=== PATIENT | female | born 1985 | race Caucasian/White ===

== ENCOUNTER 2016-08-05 16:23 | Emergency (ER) | payer OTHER ==
[~2016-08-05] VITALS: Ht 167.6 cm; Wt 125.0 kg
[~2016-08-05 16:23] MED LIST: ACYC800T PO; BIRTH CONTROL PILLS PO; CLON1 PO; LEXA20TA PO
[2016-08-05 16:25] VITALS: BP 131/91; PULSE 111; RESP 16; TEMP 98.1; O2SAT 99
[2016-08-05 17:25] LABS: BACTERIA, URINE MANY /hpf; BLOOD, URINE TRACE (NEG); COMMENT (UR) CULTURE INDICATED; CULTURE IF INDICATED CULTURE INDICATED; GLUCOSE,URINE NEG (NEG); KETONE, URINE NEG (NEG); MUCUS URINE FEW /lpf (OCC); SQUAMOUS EPITHELIAL CELL URINE 2 /hpf (0-5); URINE COLOR YELLOW (YELLW/STRAW)
[2016-08-05 17:26] LABS: NITRITE,URINE POS (NEG)
[2016-08-05] MEDS ORDERED: oxyCODONE/ACETAMINOPHEN 5 MG/325 MG TAB PO ONE (21:30)
[2016-08-05 22:05] VITALS: BP 130/84; PULSE 93; RESP 18; O2SAT 100
[2016-08-05 22:33] LABS: AUTOMATED NEUTROPHIL # 11.6 TH/MM3 (1.8-7.7); BASOPHIL # 0.1 TH/MM3 (0-0.2); BASOPHIL % 0.6 % (0.0-2.0); EOSINOPHIL # 0.3 TH/MM3 (0-0.4); EOSINOPHIL % 1.8 % (0.0-4.0); HEMATOCRIT 41.1 % (35.0-46.0); LYMPH % 24.8 % (9.0-44.0); LYMPHOCYTE # 4.1 TH/MM3 (1.0-4.8); MEAN CELL VOLUME 87.2 FL (80.0-100.0); MEAN CORPUSCULAR HEMOGLOBIN 29.6 PG (27.0-34.0); MONO % 3.3 % (0.0-8.0); NEUT % 69.5 % (16.0-70.0); PLATELET COUNT 353 TH/MM3 (150-450); RED BLOOD COUNT 4.71 MIL/MM3 (4.00-5.30); RED CELL DISTRIBUTION WIDTH 13.7 % (11.6-17.2); WHITE BLOOD COUNT 16.6 TH/MM3 (4.0-11.0)
[2016-08-05] MEDS ORDERED: MORPHINE SULFATE 8 MG/ML INJ IM ONE (23:00)
[2016-08-05 23:03] LABS: HEMO FLAGS AUTO DIFF; PLATELET ESTIMATE SMEAR NORMAL (NORMAL); PLATELET MORPHOLOGY NORMAL (NORMAL); SCAN/DIFF AUTO DIFF CONFIRMED
[2016-08-05] MEDS ORDERED: metroNIDAZOLE 500 MG TAB PO ONE (23:15)
[2016-08-05] MEDS ORDERED: ONDANSETRON ODT 4 MG TAB PO ONE (23:15)
[2016-08-05] MEDS ORDERED: cefTRIAXone 250 MG VIAL IM ONE (23:37)
--- NOTE | 2016-08-06 00:11 | PD ---
HPI Chief Complaint: Abdominal Pain Time Seen by Provider: 21:11 Travel History International Travel<30 days: No Contact w/Intl Traveler<30days: No Traveled to known affect area: No History of Present Illness HPI Patient is a 31-year-old female presents emergency Department with suprapubic pain. Patient states she has a history of PID and that her and her boyfriend her "swingers" and that she does not use protection. Patient states she does have an IUD in place. Denies any history of fever nausea vomiting or diarrhea. Patient thinks that she has a STD again. There is a history of vaginal discharge. States her symptoms began going on for several days and gradually worsening. Moderate in severity. PFSH Past Medical History Autoimmune Disease: No Anxiety: Yes Depression: Yes Cancer: Yes (cervical cancer - removed) Cardiovascular Problems: No Chemotherapy: No Cerebrovascular Accident: No Diabetes: No Diminished Hearing: No Endocrine: No Gastrointestinal Disorders: Yes (nausea all the time) Genitourinary: No Headaches: Yes Immune Disorder: No Implanted Vascular Access Dvce: No Musculoskeletal: Yes (back pain) Neurologic: Yes Psychiatric: Yes (Bipolar, ptsd, multiple personalties) Reproductive: No Respiratory: No Immunizations Current: Yes Migraines: Yes Radiation Therapy: No Seizures: Yes Thyroid Disease: No ?: Not : 0 Para: 0 Miscarriage: 0 : 0 Past Surgical History Abdominal Surgery: Yes (gallbladder removed, tonsels and adenoids removed) Cardiac Surgery: No Cholecystectomy: Yes Ear Surgery: No Endocrine Surgery: No Eye Surgery: Yes (left eye surgeries X3 (lazy eye)) Genitourinary Surgery: No Gynecologic Surgery: Yes (Cervical bx X's 2, leep) Neurologic Surgery: No Oral Surgery: No Thoracic Surgery: No Other Surgery: Yes (cervical leep) Social History Alcohol Use: Yes (RARELY) Tobacco Use: No Substance Use: No Allergies-Medications (Allergen,Severity, Reaction): Coded Allergies: Reglan (Verified Allergy, Severe, shakes, 08/05/16) Toradol (Verified Allergy, Severe, cannot urinate, 08/05/16) Tramadol (Verified Allergy, Severe, cannot urinate, 08/05/16) Zofran (Verified Allergy, Severe, shakes, 08/05/16) Erythromycin (Verified Allergy, Intermediate, fever, 08/05/16) *MDRO Multi-Drug Resistant Organism (Verified Adverse Reaction, Unknown, ) MRSA PCR screen positive - 09/23/2015 Reported Meds & Prescriptions Reported Meds & Active Scripts Active Keflex (Cephalexin) 500 Mg Cap 500 Mg PO Q6H 5 Days Flagyl (Metronidazole) 500 Mg Tab 500 Mg PO BID 7 Days Reported Acyclovir 800 Mg Tab 800 Mg PO DAILY Lexapro (Escitalopram Oxalate) 20 Mg Tab 20 Mg PO DAILY Klonopin (Clonazepam) 1 Mg Tab 1 Mg PO TID Review of Systems Except as stated in HPI: all other systems reviewed are Neg Physical Exam Narrative GENERAL: Well-developed well-nourished in no apparent distress SKIN: Warm and dry. HEAD: Atraumatic. Normocephalic. EYES: Pupils equal and round. No scleral icterus. No injection or drainage. ENT: No nasal bleeding or discharge. Mucous membranes pink and moist. NECK: Trachea midline. No JVD. CARDIOVASCULAR: Regular rate and rhythm. No murmur appreciated. RESPIRATORY: No accessory muscle use. Clear to auscultation. Breath sounds equal bilaterally. GASTROINTESTINAL: Abdomen soft, mental tenderness of the suprapubic region, nondistended. Hepatic and splenic margins not palpable. No CVA tenderness bilaterally GENITOURINARY: No joint discharge consistent with BV, no CMT, minimal bilateral adnexal tenderness. MUSCULOSKELETAL: No obvious deformities. No clubbing. No cyanosis. No edema. NEUROLOGICAL: Awake and alert. No obvious cranial nerve deficits. Motor grossly within normal limits. Normal speech. PSYCHIATRIC: Appropriate mood and affect; insight and judgment normal. Data Data Last Documented VS Vital Signs Date Time Temp Pulse Resp B/P Pulse Ox O2 Delivery O2 Flow Rate FiO2 08/06/16 02:08 75 18 130/78 98 Room Air 08/05/16 16:25 98.1 Orders Complete Blood Count With Diff (08/05/16 16:31) Urinalysis - C+S If Indicated (08/05/16 16:31) Urine Culture (08/05/16 16:46) Wet Prep Profile (08/05/16 21:17) Gc And Chlamydia Pcr (08/05/16 21:17) Oxycodone-Acetamin 5-325 Mg (Percocet (08/05/16 21:30) Us Pelvis Comp W Transvaginal (08/05/16 ) Morphine Inj (Morphine Inj) (08/05/16 23:00) Ceftriaxone Inj (Rocephin Inj) (08/06/16 09:00) Metronidazole (Flagyl) (08/05/16 23:15) Ondansetron Odt (Zofran Odt) (08/05/16 23:15) Ceftriaxone Inj (Rocephin Inj) (08/05/16 23:37) Promethazine (Phenergan) (08/06/16 01:45) Labs Laboratory Tests Test 08/05/16 08/05/16 08/05/16 16:46 21:45 22:58 Urine Color YELLOW Urine Turbidity HAZY Urine pH 6.0 Urine Specific [place] 1.022 Urine Protein NEG mg/dL Urine Glucose (UA) NEG mg/dL Urine Ketones NEG mg/dL Urine Occult Blood TRACE Urine Nitrite POS Urine Bilirubin NEG Urine Urobilinogen LESS THAN 2.0 MG/DL Urine Leukocyte Esterase SMALL Urine RBC 2 /hpf Urine WBC 12 /hpf Urine WBC Clumps OCC Urine Squamous Epithelial 2 /hpf Cells Urine Bacteria MANY /hpf Urine Mucus FEW /lpf Microscopic Urinalysis Comment CULTURE INDICATED White Blood Count 16.6 TH/MM3 Red Blood Count 4.71 MIL/MM3 Hemoglobin 14.0 GM/DL Hematocrit 41.1 % Mean Corpuscular Volume 87.2 FL Mean Corpuscular Hemoglobin 29.6 PG Mean Corpuscular Hemoglobin 34.0 % Concent Red Cell Distribution Width 13.7 % Platelet Count 353 TH/MM3 Mean Platelet Volume 9.9 FL Neutrophils (%) (Auto) 69.5 % Lymphocytes (%) (Auto) 24.8 % Monocytes (%) (Auto) 3.3 % Eosinophils (%) (Auto) 1.8 % Basophils (%) (Auto) 0.6 % Neutrophils # (Auto) 11.6 TH/MM3 Lymphocytes # (Auto) 4.1 TH/MM3 Monocytes # (Auto) 0.6 TH/MM3 Eosinophils # (Auto) 0.3 TH/MM3 Basophils # (Auto) 0.1 TH/MM3 CBC Comment AUTO DIFF Differential Comment AUTO DIFF CONFIRMED Platelet Estimate NORMAL Platelet Morphology Comment NORMAL Clue Cells (Wet Prep) NONE SEEN Vaginal Trichomonas (Wet Prep) NONE SEEN Vaginal Yeast (Wet Prep) NONE SEEN Chlamydia trachomatis DNA NOT DETECTED (PCR) Neisseria gonorrhoeae DNA NOT DETECTED (PCR) [facility] Medical Decision Making Medical Screen Exam Complete: Yes Emergency Medical Condition: Yes Differential Diagnosis , UTI, TOA, PID, ovarian torsion. Narrative Course Patient roomed in the emergency department, appears well taxing on her phone when not being interviewed by nursing or myself. Complains of significant pain and multiple doses of pain medicine given in the emergency department. Abdomen is benign, labs ordered as part of protocol workup hemolyzed. I don't think that they're necessary at this time. While awaiting ultrasound results for GC CT was run and is negative. She was given Rocephin in the emergency department. No indication for further STD treatment. She does have symptoms consistent with BV and does have a UA. Ultrasound of the ovaries and adnexa is negative for acute abnormality of the ovaries and adnexa. Her test negative. She is stable for discharge at this time recommend follow-up with her primary care physician or return to ED criteria as discussed. Discussed barrier contraception. Diagnosis Primary Impression: Urinary tract infection Qualified Code: N30.00 - Acute cystitis without hematuria Additional Impression: Bacterial vaginosis Med/Other Pt SpecificInfo: Prescription(s) given Scripts Cephalexin (Keflex)500 Mg [id number] Mg PO Q6H 5 Days Ref 0 Prov:Gabriel Craft MD 08/06/16 Metronidazole (Flagyl)500 Mg [id number] Mg PO BID 7 Days Ref 0 Prov:Gabriel Craft MD 08/06/16 Disposition: 01 DISCHARGE HOME Condition: Stable Gabriel Craft MD Aug 06, 2016 00:11
[2016-08-06 01:31] LABS: CHLAMYDIA PCR NOT DETECTED (NOT DETECT); NEISSERIA PCR NOT DETECTED (NOT DETECT)
[2016-08-06] MEDS ORDERED: PROMETHAZINE HCL 25 MG TAB PO ONE (01:45)
--- NOTE | 2016-08-06 01:59 | RADRPT ---
EXAM DATE/TIME: 08/06/2016 00:01 [facility] COMPARISON: No previous studies available for comparison. INDICATIONS : Left pelvic pain. MEDICAL HISTORY : Left pelvic pain. SURGICAL HISTORY : None. ENCOUNTER: Initial ACUITY: 1 day PAIN SCORE: 8/10 LOCATION: Bilateral pelvis MEASUREMENTS: UTERUS: 8.3 x 4.1 x 3.8 cm ENDOMETRIAL STRIPE: 11 mm RIGHT OVARY: 2.5 x 3.1 x 1.5 cm LEFT OVARY: 6.0 x 4.7 x 4.2 cm FINDINGS: UTERUS: The myometrium has homogeneous echotexture without mass. Small amount of fluid in the lower uterine segment. Intrauterine device noted. RIGHT OVARY: Ovary contains no mass or significant cystic lesion. LEFT OVARY: Simple cyst measures 5.0 x 4.3 x 3.5 cm. Color-flow present. MISCELLANEOUS: No free fluid. CONCLUSION: 1. Simple left ovarian cyst measuring 5.0 cm. 2. Small amount of fluid in the lower uterine segment. 3. Intrauterine device. Raj Yang MD on August 06, 2016 at 1:55 Board Certified Radiologist. This report was verified electronically.
[2016-08-06] MEDS ORDERED: METR-1 PO (02:01)
[2016-08-06] MEDS ORDERED: CEPH-460 PO (02:01)
[2016-08-06 02:08] VITALS: BP 130/78; PULSE 75; RESP 18; O2SAT 98
[2016-08-06] MEDS ORDERED: cefTRIAXone 250 MG VIAL IM SCH (09:00)
== END 2016-08-06 02:44 | disposition home or self-care (01) ==
LOC: NEPC 16:23
DX: N39.0 Urinary tract infection, site not specified (principal); N76.0 Acute vaginitis; B96.1 Klebsiella pneumoniae [K. pneumoniae] as the cause of diseases classified elsewhere
CPT/HCPCS: 76830; 76856; 81001; 85025; 87077; 87086; 87186; 87210; 87491; 87591; 96372; 99284; J0696; J2270; Q0169; 80048; 83690

== ENCOUNTER 2016-08-26 16:33 | Emergency (ER) | payer OTHER ==
[~2016-08-26] VITALS: Ht 172.7 cm; Wt 100.0 kg
[~2016-08-26 16:33] MED LIST changes: -BIRTH CONTROL PILLS PO; +CEPH-460 PO; +METR-1 PO
[2016-08-26 16:45] VITALS: BP 133/82; PULSE 87; RESP 20; TEMP 97.9; O2SAT 94
[2016-08-26] MEDS ORDERED: SODIUM CHLOR 0.9% 1000 ML INJ 1,000 ML IV ONE (16:49)
[2016-08-26] MEDS ORDERED: LAMO25 PO (16:52)
--- NOTE | 2016-08-26 16:53 | PD ---
HPI Chief Complaint: Seizure Time Seen by Provider: 16:53 Travel History International Travel<30 days: No Contact w/Intl Traveler<30days: No Traveled to known affect area: No History of Present Illness HPI 31-year-old female with a history of bipolar disorder, anxiety, depression, pseudoseizures presents to the emergency department for evaluation of seizures. Per EMS the patient reportedly had seizure activity [place] the [place] all [place] a book. States that she then had 2 other seizures while in their care. States that there was no postictal state, no tongue biting, no urinary or bowel incontinence. The patient states that she takes Lamictal for her seizure disorder. She states that her last seizure before today was about 2 weeks ago. She states that she is having nausea and vomiting and was seen at [facility] earlier today for vomiting and abdominal pain and had a CAT scan and lab work and was told that she had colitis and discharged with Phenergan for nausea. She denies any headache, lightheadedness, dizziness, numbness or tingling, weakness. She does not follow up with a neurologist. Denies alcohol or drug use. No other complaints. PFSH Past Medical History Autoimmune Disease: No Anxiety: Yes Depression: Yes Cancer: Yes (cervical cancer - removed) Cardiovascular Problems: No Chemotherapy: No Cerebrovascular Accident: No Diabetes: No Diminished Hearing: No Endocrine: No Gastrointestinal Disorders: Yes (nausea all the time) Genitourinary: No Headaches: Yes Immune Disorder: No Implanted Vascular Access Dvce: No Musculoskeletal: Yes (back pain) Neurologic: Yes Psychiatric: Yes (Bipolar, ptsd, multiple personalties) Reproductive: No Respiratory: No Immunizations Current: Yes Migraines: Yes Radiation Therapy: No Seizures: Yes Thyroid Disease: No ?: Not : 0 Para: 0 Miscarriage: 0 : 0 Past Surgical History Abdominal Surgery: Yes (gallbladder removed, tonsels and adenoids removed) Cardiac Surgery: No Cholecystectomy: Yes Ear Surgery: No Endocrine Surgery: No Eye Surgery: Yes (left eye surgeries X3 (lazy eye)) Genitourinary Surgery: No Gynecologic Surgery: Yes (Cervical bx X's 2, leep) Neurologic Surgery: No Oral Surgery: No Thoracic Surgery: No Other Surgery: Yes (cervical leep) Social History Alcohol Use: Yes (RARELY) Tobacco Use: No Substance Use: No Allergies-Medications (Allergen,Severity, Reaction): Coded Allergies: Reglan (Verified Allergy, Severe, shakes, 08/05/16) Toradol (Verified Allergy, Severe, cannot urinate, 08/05/16) Tramadol (Verified Allergy, Severe, cannot urinate, 08/05/16) Zofran (Verified Allergy, Severe, shakes, 08/05/16) Erythromycin (Verified Allergy, Intermediate, fever, 08/05/16) *MDRO Multi-Drug Resistant Organism (Verified Adverse Reaction, Unknown, ) MRSA PCR screen positive - 09/23/2015 Reported Meds & Prescriptions Reported Meds & Active Scripts Active Reported Lamictal (Lamotrigine) 25 Mg Tab Unknown Dose PO DAILY Lexapro (Escitalopram Oxalate) 20 Mg Tab 20 Mg PO DAILY Review of Systems Except as stated in HPI: all other systems reviewed are Neg Physical Exam Narrative GENERAL: Well-nourished and well-developed female patient in no acute distress who is nontoxic appearing. SKIN: Warm and dry. HEAD: Normocephalic and atraumatic. EYES: No injection, drainage, or hyphema noted. PERRLA. EOMI. ENT: No nasal drainage noted. Oropharynx is clear. NECK: Supple and the trachea is midline. CARDIOVASCULAR: Regular rate and rhythm. RESPIRATORY: Breath sounds are equal bilaterally with no accessory muscle use, wheezing, rhonchi, or crackles. GASTROINTESTINAL: Abdomen is soft, non-tender, and nondistended. MUSCULOSKELETAL: No obvious deformities, swelling, cyanosis, or ecchymosis is present throughout the upper and lower extremities. Patient has full range of motion without any signs of neurovascular compromise. NEUROLOGICAL: Awake, alert, and oriented. Normal speech and gait. Cranial nerves are grossly intact. Data Data Last Documented VS Vital Signs Date Time Temp Pulse Resp B/P Pulse Ox O2 Delivery O2 Flow Rate FiO2 08/26/16 16:45 97.9 87 20 133/82 94 Orders Complete Blood Count With Diff (08/26/16 16:49) Drug Screen, Random Urine (08/26/16 16:49) Iv Access Insert/Monitor (08/26/16 16:49) Comprehensive Metabolic Panel (08/26/16 16:49) Sodium Chlor 0.9% 1000 Ml Inj (Ns 1000 M (08/26/16 16:49) Urinalysis - C+S If Indicated (08/26/16 16:49) Lipase (08/26/16 16:49) Prochlorperazine Inj (Compazine Inj) (08/26/16 17:00) MDM Medical Decision Making Medical Screen Exam Complete: Yes Emergency Medical Condition: Yes Differential Diagnosis Pseudoseizure versus seizure disorder versus mood disorder versus malingering Narrative Course 31-year-old female is brought to the emergency department by EMS for evaluation of seizures. Patient is afebrile, vital signs are stable. The patient has a documented history of pseudoseizures at our hospital in the past. Today there was no postictal state, no tongue biting or incontinence. The patient is not on any seizure medications and not following up with a neurologist. Lab work has been ordered and is pending. Patient left AMA before lab work was complete. AMA: The risks of leaving against medical advice without further evaluation treatment were discussed with the patient. These risks include cardiac dysfunction, cardiac dysrhythmia, possible heart attack, possible stroke or . The patient indicated understanding of these risks and appeared to have the capacity to make this decision. Diagnosis Primary Impression: Left against medical advice Disposition: 07 AGAINST MEDICAL ADVICE [place] Aug 26, 2016 16:53
[2016-08-26] MEDS ORDERED: PROCHLORPERAZINE INJ 10 MG/2 ML VIAL IVS ONE (17:00)
[2016-08-26 17:34] LABS: AUTOMATED NEUTROPHIL # 7.8 TH/MM3 (1.8-7.7); BASOPHIL # 0.1 TH/MM3 (0-0.2); BASOPHIL % 0.5 % (0.0-2.0); EOSINOPHIL # 0.1 TH/MM3 (0-0.4); EOSINOPHIL % 0.5 % (0.0-4.0); HEMATOCRIT 37.1 % (35.0-46.0); HEMO FLAGS DIFF FINAL; LYMPH % 20.1 % (9.0-44.0); LYMPHOCYTE # 2.1 TH/MM3 (1.0-4.8); MEAN CELL VOLUME 88.4 FL (80.0-100.0); MEAN CORPUSCULAR HGB CONC 33.9 % (32.0-36.0); MONO % 4.3 % (0.0-8.0); NEUT % 74.6 % (16.0-70.0); PLATELET COUNT 323 TH/MM3 (150-450); RED BLOOD COUNT 4.19 MIL/MM3 (4.00-5.30); RED CELL DISTRIBUTION WIDTH 13.5 % (11.6-17.2); WHITE BLOOD COUNT 10.4 TH/MM3 (4.0-11.0)
== END 2016-08-26 17:43 | disposition left against medical advice (07) ==
LOC: NEPB 16:33
DX: F41.8 Other specified anxiety disorders (principal); R56.9 Unspecified convulsions
CPT/HCPCS: 85025; 96374; 99284; J0780; J7030; 80053; 83690

== ENCOUNTER 2016-09-23 17:36 | Emergency (ER) | payer OTHER ==
[~2016-09-23] VITALS: Ht 170.2 cm; Wt 125.0 kg
[~2016-09-23 17:36] MED LIST changes: -ACYC800T PO; -CEPH-460 PO; -CLON1 PO; +LAMO25 PO; -METR-1 PO
[2016-09-23 18:26] VITALS: BP 127/66; PULSE 95; RESP 18; TEMP 98.2; O2SAT 99
[2016-09-23 20:00] VITALS: BP 149/84; PULSE 80; RESP 18; O2SAT 98
[2016-09-23] MEDS ORDERED: SODIUM CHLOR 0.9% 1000 ML INJ 1,000 ML IV ONE (20:10)
--- NOTE | 2016-09-23 20:14 | PD ---
HPI Chief Complaint: Seizure Time Seen by Provider: 20:10 Travel History International Travel<30 days: No Contact w/Intl Traveler<30days: No Traveled to known affect area: No History of Present Illness HPI 31-year-old female presents to the emergency department by EMS transport from home. Patient was reportedly witnessed to have had a seizure. Seizure was estimated to be approximately 2-3 minutes. No injury was sustained reportedly. Patient denies any tongue trauma bladder or bowel incontinence. Patient does complain of headache however. Patient does have history of migraine headaches are typically managed with Imitrex Compazine and Benadryl when it is necessary to come to the emergency room for management of her headache. Patient states headache began yesterday as a typical migraine bifrontal and radiating to the left occiput region. Patient states she was able to take her seizure medication yesterday for her morning dose and her evening dose however this morning she was unsuccessful and tolerating her oral dose of anticonvulsant as 30 minutes after ingesting the medication she had vomiting. Patient is otherwise been compliant with her medications and not missed any dosages of her seizure medication. Patient states she is out of Imitrex. Patient rates her headache as 4-10 over 10 in intensity. Patient is unable to identify exacerbating or alleviating factors. Patient does have associated photophobia but denies any prodrome or upper or lower extremity numbness tingling or weakness or ataxia of gait. No hematemesis no coffee-ground emesis no melena or hematochezia. Patient also denies . Patient also denies any dysuria frequency urgency or hematuria. No recent febrile illness and no nuchal rigidity. PFSH Past Medical History Narrative Medical Seizure anxiety depression cervical cancer migraine headaches cervical LEEP procedure cholecystectomy alcohol use no tobacco use nursing notes reviewed Autoimmune Disease: No Anxiety: Yes Depression: Yes Cancer: Yes (cervical cancer - removed) Cardiovascular Problems: No Chemotherapy: No Cerebrovascular Accident: No Diabetes: No Diminished Hearing: No Endocrine: No Gastrointestinal Disorders: Yes (nausea all the time) Genitourinary: No Headaches: Yes Immune Disorder: No Implanted Vascular Access Dvce: No Musculoskeletal: Yes (back pain) Neurologic: Yes Psychiatric: Yes (Bipolar, ptsd, multiple personalties) Reproductive: No Respiratory: No Immunizations Current: Yes Migraines: Yes Radiation Therapy: No Seizures: Yes Thyroid Disease: No ?: Not LMP: IUD : 0 Para: 0 Miscarriage: 0 : 0 Past Surgical History Abdominal Surgery: Yes (gallbladder removed, tonsels and adenoids removed) Cardiac Surgery: No Cholecystectomy: Yes Ear Surgery: No Endocrine Surgery: No Eye Surgery: Yes (left eye surgeries X3 (lazy eye)) Genitourinary Surgery: No Gynecologic Surgery: Yes (Cervical bx X's 2, leep) Neurologic Surgery: No Oral Surgery: No Thoracic Surgery: No Other Surgery: Yes (cervical leep) Social History Alcohol Use: Yes (RARELY) Tobacco Use: No Substance Use: No Allergies-Medications (Allergen,Severity, Reaction): Coded Allergies: Reglan (Verified Allergy, Severe, shakes, 09/23/16) Toradol (Verified Allergy, Severe, cannot urinate, 09/23/16) Tramadol (Verified Allergy, Severe, cannot urinate, 09/23/16) Zofran (Verified Allergy, Severe, shakes, 09/23/16) Erythromycin (Verified Allergy, Intermediate, fever, 09/23/16) *MDRO Multi-Drug Resistant Organism (Verified Adverse Reaction, Unknown, ) MRSA PCR screen positive - 09/23/2015 Reported Meds & Prescriptions Reported Meds & Active Scripts Active Phenergan (Promethazine HCl) 25 Mg Tab 25 Mg PO Q6H PRN Reported Gabapentin 600 Mg Tab 600 Mg PO TID [place] (Hydrocodone-Acetaminophen) 10-325 Mg Tab 1 Tab PO Q6H PRN Zanaflex (Tizanidine HCl) 4 Mg Cap 4 Mg PO HS Ambien (Zolpidem Tartrate) 5 Mg Tab 5 Mg PO HS Latuda (Lurasidone) 20 Mg Tab 20 Mg PO HS Lamotrigine 100 Mg Tab 100 Mg PO BID Lexapro (Escitalopram Oxalate) 20 Mg Tab 20 Mg PO HS Review of Systems Except as stated in HPI: all other systems reviewed are Neg Physical Exam Narrative GENERAL: Well-developed well-nourished female in no acute distress no respiratory distress SKIN: Warm and dry. HEAD: Atraumatic. Normocephalic. EYES: Pupils equal and round. No scleral icterus. No injection or drainage. ENT: No nasal bleeding or discharge. Mucous membranes pink and moist. NECK: Trachea midline. No JVD. CARDIOVASCULAR: Regular rate and rhythm. RESPIRATORY: No accessory muscle use. Clear to auscultation. Breath sounds equal bilaterally. GASTROINTESTINAL: Abdomen soft, non-tender, nondistended. Hepatic and splenic margins not palpable. MUSCULOSKELETAL: Extremities without clubbing, cyanosis, or edema. No obvious deformities. NEUROLOGICAL: Awake and alert. No obvious cranial nerve deficits. Motor grossly within normal limits. Five out of 5 muscle strength in the arms and legs. Normal speech. PSYCHIATRIC: Appropriate mood and affect; insight and judgment normal. Data Data Last Documented VS Vital Signs Date Time Temp Pulse Resp B/P Pulse Ox O2 Delivery O2 Flow Rate FiO2 09/24/16 01:29 82 18 125/78 98 Room Air 09/23/16 18:26 98.2 Orders Complete Blood Count With Diff (09/23/16 20:10) Drug Screen, Random Urine (09/23/16 20:10) Electrocardiogram (09/23/16 ) Ct Brain W/O Iv Contrast(Rout) (09/23/16 ) Blood Glucose (09/23/16 20:10) Ecg Monitoring (09/23/16 20:10) Iv Access Insert/Monitor (09/23/16 20:10) Oximetry (09/23/16 20:10) Comprehensive Metabolic Panel (09/23/16 20:10) Sodium Chlor 0.9% 1000 Ml Inj (Ns 1000 M (09/23/16 20:10) Sodium Chloride 0.9% Flush (Ns Flush) (09/23/16 20:15) Ua Includes Microscopic (09/23/16 20:10) Prochlorperazine Inj (Compazine Inj) (09/23/16 20:15) Diphenhydramine Inj (Benadryl Inj) (09/23/16 20:15) Diphenhydramine Inj (Benadryl Inj) (09/24/16 00:45) Lamotrigine (Lamictal) (09/24/16 00:45) Labs Laboratory Tests Test 09/23/16 09/23/16 09/23/16 22:00 22:30 23:36 Urine Color YELLOW Urine Turbidity HAZY Urine pH 6.5 Urine Specific [place] 1.033 Urine Protein 30 mg/dL Urine Glucose (UA) NEG mg/dL Urine Ketones NEG mg/dL Urine Occult Blood TRACE Urine Nitrite NEG Urine Bilirubin NEG Urine Urobilinogen LESS THAN 2.0 MG/DL Urine Leukocyte Esterase NEG Urine RBC 3 /hpf Urine WBC 3 /hpf Urine Squamous Epithelial 16 /hpf Cells Urine Calcium Oxalate Crystals RARE /hpf Urine Bacteria OCC /hpf Urine Mucus MANY /lpf Microscopic Urinalysis Comment Urine Opiates Screen POS Urine Barbiturates Screen NEG Urine Amphetamines Screen NEG Urine Benzodiazepines Screen NEG Urine Cocaine Screen NEG Urine Cannabinoids Screen NEG White Blood Count 9.9 TH/MM3 Red Blood Count 4.42 MIL/MM3 Hemoglobin 13.3 GM/DL Hematocrit 38.9 % Mean Corpuscular Volume 87.9 FL Mean Corpuscular Hemoglobin 30.2 PG Mean Corpuscular Hemoglobin 34.3 % Concent Red Cell Distribution Width 13.6 % Platelet Count 321 TH/MM3 Mean Platelet Volume 9.7 FL Neutrophils (%) (Auto) 64.1 % Lymphocytes (%) (Auto) 29.3 % Monocytes (%) (Auto) 4.9 % Eosinophils (%) (Auto) 1.2 % Basophils (%) (Auto) 0.5 % Neutrophils # (Auto) 6.3 TH/MM3 Lymphocytes # (Auto) 2.9 TH/MM3 Monocytes # (Auto) 0.5 TH/MM3 Eosinophils # (Auto) 0.1 TH/MM3 Basophils # (Auto) 0.1 TH/MM3 CBC Comment DIFF FINAL Differential Comment Sodium Level 141 MEQ/L Potassium Level 3.7 MEQ/L Chloride Level 109 MEQ/L Carbon Dioxide Level 24.6 MEQ/L Anion Gap 7 MEQ/L Blood Urea Nitrogen 14 MG/DL Creatinine 0.75 MG/DL Estimat Glomerular Filtration 91 ML/MIN Rate Random Glucose 100 MG/DL Calcium Level 8.4 MG/DL Total Bilirubin 0.3 MG/DL Aspartate Amino Transf 12 U/L (AST/SGOT) Alanine Aminotransferase 17 U/L (ALT/SGPT) Alkaline Phosphatase 83 U/L Total Protein 7.2 GM/DL Albumin 3.6 GM/DL MDM Medical Decision Making Medical Screen Exam Complete: Yes Emergency Medical Condition: Yes Medical Record Reviewed: Yes Interpretation(s) EKG: Normal sinus rhythm heart rate [address] elevation or injury pattern change or ectopy noted Last Impressions Head CT 09/23/16 0000 Signed Impressions: Service Date/Time: Friday, September 23, 2016 20:36 - CONCLUSION: No acute disease. No significant change has occurred. Macho Scott MD CBC & BMP Diagram 09/23/16 22:30 09/23/16 23:36 Vital Signs Date Time Temp Pulse Resp B/P Pulse Ox O2 Delivery O2 Flow Rate FiO2 09/23/16 22:52 17 98 Room Air 09/23/16 22:00 82 18 127/75 99 Room Air 09/23/16 20:00 80 18 149/84 98 Room Air 09/23/16 18:26 98.2 95 18 127/66 99 Differential Diagnosis Breakthrough seizure medication noncompliance recurrent migraine vascular headache ICH CVA Narrative Course Patient with resolution of migraine headache after administration of IV fluids Benadryl and Compazine; patient monitored in the emergency department without recurrent seizure which is felt to be related to subtherapeutic anti-epileptic medication due to vomiting associated with migraine patient given replacement anticonvulsant. Patient made stable in the emergency department stable for outpatient management. Patient administered replacement dose of anticonvulsant reports feels clinically improved; patient is aware of need for close follow-up with her primary care provider and her neurologists. Patient provided a prescription for medication for nausea vomiting. Diagnosis Primary Impression: Migraine headache Qualified Code: G43.009 - Migraine without aura and without status migrainosus , not intractable Additional Impression: Breakthrough seizure Referrals: Primary Care Physician call for appointment Patient Instructions: General Instructions Departure Forms: Tests/Procedures, Work Release Special Instructions: no work x 1 day Additional Instructions: Continue current medications as presently prescribed Take medication as prescribed as needed for nausea and/or vomiting Follow-up with your primary care provider return to the emergency department for any concerns or change in condition No work times one day and ongoing no driving or climbing ladders Follow-up with your primary care provider and neurologist Return to the emergency department for any concerns or change in condition Med/Other Pt SpecificInfo: Prescription(s) given Scripts Promethazine (Phenergan)25 Mg Tab25 Mg PO Q6H PRN (Nausea/Vomiting) #10 TAB Ref 0 Prov:Liudmila Miranda MD 09/24/16 Disposition: 01 DISCHARGE HOME Condition: Stable Liudmila Miranda MD Sep 23, 2016 20:14
[2016-09-23] MEDS ORDERED: SODIUM CHLORIDE 0.9% FLUSH 5 ML FLUSH IVF PRN (20:15)
[2016-09-23] MEDS ORDERED: diphenhydrAMINE HCL 50 MG/ML VIAL IV PUSH ONE (20:15)
[2016-09-23] MEDS ORDERED: PROCHLORPERAZINE INJ 10 MG/2 ML VIAL IVS ONE (20:15)
--- NOTE | 2016-09-23 20:58 | RADRPT ---
EXAM DATE/TIME: 09/23/2016 20:36 [facility] COMPARISON: CT BRAIN W/O CONTRAST, February 06, 2016, 4:25. INDICATIONS : Witness seizure today; cephalgia and nausea; history of cervical cancer. RADIATION DOSE: 36.70 CTDIvol (mGy) MEDICAL HISTORY : Seizures. Cervical cancer; Multpile personality syndrome. SURGICAL HISTORY : Cholecystectomy. ENCOUNTER: Initial ACUITY: 1 day PAIN SCALE: 6/10 LOCATION: cranial TECHNIQUE: Multiple contiguous axial images were obtained of the head. Using automated exposure control and adj ustment of the mA and/or kV according to patient size, radiation dose was kept as low as reasonably a chievable to obtain optimal diagnostic quality images. FINDINGS: CEREBRUM: The ventricles are normal for age. No evidence of midline shift, mass lesion, hemorrhage or acute in farction. No extra-axial fluid collections are seen. POSTERIOR FOSSA: The cerebellum and brainstem are intact. The 4th ventricle is midline. The cerebellopontine angle i s unremarkable. EXTRACRANIAL: The visualized portion of the orbits is intact. SKULL: The calvaria is intact. No evidence of skull fracture. CONCLUSION: No acute disease. No significant change has occurred. Macho Scott MD on September 23, 2016 at 20:56 Board Certified Radiologist. This report was verified electronically.
[2016-09-23] MEDS ORDERED: AMBI5TAB PO (21:17)
[2016-09-23] MEDS ORDERED: ZANA4CAP PO (21:17)
[2016-09-23] MEDS ORDERED: LAMO100T PO (21:17)
[2016-09-23] MEDS ORDERED: HYDR-3366 PO (21:17)
[2016-09-23] MEDS ORDERED: GABA600T PO (21:17)
[2016-09-23] MEDS ORDERED: LURA20TA PO (21:17)
[2016-09-23 22:00] VITALS: BP 127/75; PULSE 82; RESP 18; O2SAT 99
[2016-09-23 22:52] VITALS: RESP 17; O2SAT 98
[2016-09-23 22:53] LABS: AMPHETAMINE, URINE NEG (NEG); BARBITURATES, URINE NEG (NEG); COCAINE, URINE NEG (NEG)
[2016-09-23 22:59] LABS: AUTOMATED NEUTROPHIL # 6.3 TH/MM3 (1.8-7.7); BASOPHIL # 0.1 TH/MM3 (0-0.2); BASOPHIL % 0.5 % (0.0-2.0); EOSINOPHIL # 0.1 TH/MM3 (0-0.4); EOSINOPHIL % 1.2 % (0.0-4.0); HEMATOCRIT 38.9 % (35.0-46.0); HEMO FLAGS DIFF FINAL; LYMPH % 29.3 % (9.0-44.0); LYMPHOCYTE # 2.9 TH/MM3 (1.0-4.8); MEAN CELL VOLUME 87.9 FL (80.0-100.0); MEAN CORPUSCULAR HEMOGLOBIN 30.2 PG (27.0-34.0); MEAN CORPUSCULAR HGB CONC 34.3 % (32.0-36.0); MONO % 4.9 % (0.0-8.0); NEUT % 64.1 % (16.0-70.0); PLATELET COUNT 321 TH/MM3 (150-450); RED BLOOD COUNT 4.42 MIL/MM3 (4.00-5.30); RED CELL DISTRIBUTION WIDTH 13.6 % (11.6-17.2); WHITE BLOOD COUNT 9.9 TH/MM3 (4.0-11.0)
[2016-09-23 23:21] LABS: BACTERIA, URINE OCC /hpf; BLOOD, URINE TRACE (NEG); CALCIUM OXALATE CRYSTALS,URINE RARE /hpf; GLUCOSE,URINE NEG (NEG); KETONE, URINE NEG (NEG); MUCUS URINE MANY /lpf (OCC); NITRITE,URINE NEG (NEG); PH, URINE 6.5 (5.0-8.5); SQUAMOUS EPITHELIAL CELL URINE 16 /hpf (0-5); URINE COLOR YELLOW (YELLW/STRAW)
[2016-09-24 00:04] LABS: ALT (GPT) 17 U/L (10-53); ANION GAP 7 MEQ/L (5-15); AST (GOT) 12 U/L (15-37); BICARBONATE 24.6 MEQ/L (21.0-32.0); BLOOD UREA NITROGEN 14 MG/DL (7-18); CHLORIDE 109 MEQ/L (98-107); GLOMERULAR FILTRATION RATE 91 ML/MIN (>89); POTASSIUM 3.7 MEQ/L (3.5-5.1); SODIUM (NA) 141 MEQ/L (136-145)
[2016-09-24 00:06] LABS: ALKALINE PHOSPHATASE 83 U/L (45-117); TOTAL BILIRUBIN ADULT 0.3 MG/DL (0.2-1.0)
[2016-09-24] MEDS ORDERED: lamoTRIgine 100 MG TAB PO ONE (00:45)
[2016-09-24] MEDS ORDERED: diphenhydrAMINE HCL 50 MG/ML VIAL IV PUSH ONE (00:45)
[2016-09-24] MEDS ORDERED: PROM25TA5 PO (00:59)
[2016-09-24 01:29] VITALS: BP 125/78; PULSE 82; RESP 18; O2SAT 98
--- NOTE | 2016-09-24 23:52 | EKG ---
Date Performed: 09/23/2016 Time Performed: 20:11:52 PTAGE: 31 years EKG: Sinus rhythm NORMAL ECG PREVIOUS TRACING : 02/06/2016 02.19 Compared to prior tracing no significant change DOCTOR: Carlos Linares Interpretating Date/Time 09/24/2016 23:50:24
== END 2016-09-24 01:44 | disposition home or self-care (01) ==
LOC: NEPC 17:36
DX: G43.009 Migraine without aura, not intractable, without status migrainosus (principal)
CPT/HCPCS: 70450; 80053; 80307; 81001; 85025; 93005; 96374; 96375; 96376; 99284; J0780; J1200; J7030

== ENCOUNTER 2016-10-05 12:11 | Emergency (ER) | payer OTHER ==
[~2016-10-05] VITALS: Ht 170.2 cm; Wt 128.0 kg
[~2016-10-05 12:11] MED LIST changes: +AMBI5TAB PO; +GABA600T PO; +HYDR-3366 PO; +LAMO100T PO; -LAMO25 PO; +LURA20TA PO; +PROM25TA5 PO; +ZANA4CAP PO
[2016-10-05 12:18] VITALS: BP 168/98; PULSE 82; RESP 14; TEMP 97.9; O2SAT 98
[2016-10-05] MEDS ORDERED: ACETAMINOPHEN/HYDROcodone 325 MG/5 MG TAB PO ONE (12:45)
--- NOTE | 2016-10-05 13:14 | RADRPT ---
EXAM DATE/TIME: 10/05/2016 13:01 [facility] COMPARISON: No previous studies available for comparison. INDICATIONS : Patient states she fell yesterday, lateral side pain. MEDICAL HISTORY : None. SURGICAL HISTORY : None. ENCOUNTER: Initial ACUITY: 2 days PAIN SCORE: 5/10 LOCATION: Left Foot FINDINGS: Three view examination of the left foot demonstrates no soft tissue swelling, dislocation, or fractur e. The tarsal bones appear intact. The interphalangeal and metatarsophalangeal joints are intact. The calcaneus is intact. Bony mineralization is normal. CONCLUSION: Negative for fracture or dislocation. Follow up in 7-10 days is suggested if symptoms persist. Miki Webb MD FACR on October 05, 2016 at 13:09 Board Certified Radiologist. This report was verified electronically.
[2016-10-05] MEDS ORDERED: IBUP800T23 PO (13:36)
[2016-10-05] MEDS ORDERED: EXTR500C PO (13:36)
--- NOTE | 2016-10-05 13:36 | PD ---
HPI Chief Complaint: Injury Time Seen by Provider: 12:45 Travel History International Travel<30 days: No Contact w/Intl Traveler<30days: No Traveled to known affect area: No History of Present Illness HPI 31-year-old female presents the emergency department with pain in the left dorsal lateral foot secondary to tripping over a curb last night. Patient has pain 9/10. She is able to barely bear weight. She denies ankle pain. She denies any other injury. Patient has a history of MRSA. She is allergic to Compazine, erythromycin, Reglan, Toradol, tramadol, and Zofran. PFSH Past Medical History Autoimmune Disease: No Anxiety: Yes Depression: Yes Cancer: Yes (cervical cancer - removed) Cardiovascular Problems: No Chemotherapy: No Cerebrovascular Accident: No Diabetes: No Diminished Hearing: No Endocrine: No Gastrointestinal Disorders: Yes (nausea all the time) Genitourinary: No Headaches: Yes Immune Disorder: No Implanted Vascular Access Dvce: No Musculoskeletal: Yes (back pain) Neurologic: Yes Psychiatric: Yes (Bipolar, ptsd, multiple personalties) Reproductive: No Respiratory: No Immunizations Current: Yes Migraines: Yes Radiation Therapy: No Seizures: Yes Thyroid Disease: No ?: Not LMP: IUD : 0 Para: 0 Miscarriage: 0 : 0 Past Surgical History Abdominal Surgery: Yes (gallbladder removed, tonsels and adenoids removed) Cardiac Surgery: No Cholecystectomy: Yes Ear Surgery: No Endocrine Surgery: No Eye Surgery: Yes (left eye surgeries X3 (lazy eye)) Genitourinary Surgery: No Gynecologic Surgery: Yes (Cervical bx X's 2, leep) Neurologic Surgery: No Oral Surgery: No Thoracic Surgery: No Other Surgery: Yes (cervical leep) Social History Alcohol Use: Yes (RARELY) Tobacco Use: No Substance Use: No Allergies-Medications (Allergen,Severity, Reaction): Coded Allergies: Reglan (Verified Allergy, Severe, shakes, 10/05/16) Toradol (Verified Allergy, Severe, cannot urinate, 10/05/16) Tramadol (Verified Allergy, Severe, cannot urinate, 10/05/16) Zofran (Verified Allergy, Severe, shakes, 10/05/16) Erythromycin (Verified Allergy, Intermediate, fever, 10/05/16) *MDRO Multi-Drug Resistant Organism (Verified Adverse Reaction, Unknown, ) MRSA PCR screen positive - 09/23/2015 Compazine (Verified Adverse Reaction, Unknown, AGITATION, 10/05/16) Reported Meds & Prescriptions Reported Meds & Active Scripts Active Ibuprofen 800 Mg Tab 800 Mg PO Q8H PRN Acetaminophen Extra Strength (Acetaminophen) 500 Mg Cap 1,000 Mg PO Q6H PRN Phenergan (Promethazine HCl) 25 Mg Tab 25 Mg PO Q6H PRN Reported Gabapentin 600 Mg Tab 600 Mg PO TID [place] (Hydrocodone-Acetaminophen) 10-325 Mg Tab 1 Tab PO Q6H PRN Zanaflex (Tizanidine HCl) 4 Mg Cap 4 Mg PO HS Ambien (Zolpidem Tartrate) 5 Mg Tab 5 Mg PO HS Latuda (Lurasidone) 20 Mg Tab 20 Mg PO HS Lamotrigine 100 Mg Tab 100 Mg PO BID Lexapro (Escitalopram Oxalate) 20 Mg Tab 20 Mg PO HS Review of Systems Except as stated in HPI: all other systems reviewed are Neg General / Constitutional: No: Fever Eyes: No: Visual changes HENT: No: Headaches Cardiovascular: No: Chest Pain or Discomfort Respiratory: No: Shortness of Breath Gastrointestinal: No: Abdominal Pain Genitourinary: No: Dysuria Musculoskeletal: No: Pain Skin: No Rash Neurologic: No: Weakness Psychiatric: No: Depression Endocrine: No: Polydipsia Hematologic/Lymphatic: No: Easy Bruising Physical Exam Narrative GENERAL: Patient appears in mild distress. SKIN: Warm and dry. Normal color. Normal turgor. Mild bruising over the left proximal dorsal lateral foot. HEAD: Atraumatic. Normocephalic. EYES: Pupils equal and round. No scleral icterus. No injection or drainage. ENT: No nasal bleeding or discharge. Mucous membranes pink and moist. Pharynx is clear. NECK: Trachea midline. Neck is supple nontender. CARDIOVASCULAR: Regular rate and rhythm. RESPIRATORY: No accessory muscle use. Clear to auscultation. Breath sounds equal bilaterally. MUSCULOSKELETAL: Extremities without clubbing, cyanosis, or edema. No obvious deformities. Patient is tenderness along the dorsal lateral left foot. She has tenderness at the base of the fifth metatarsal. NEUROLOGICAL: Awake and alert. No obvious cranial nerve deficits. Motor grossly within normal limits. Five out of 5 muscle strength in the arms and legs. Normal speech. PSYCHIATRIC: Appropriate mood and affect; insight and judgment normal. Data Data Last Documented VS Vital Signs Date Time Temp Pulse Resp B/P Pulse Ox O2 Delivery O2 Flow Rate FiO2 10/05/16 12:18 97.9 82 14 168/98 98 Orders Foot, Complete ([id number]) (10/05/16 12:35) Ice/Cold Pack (10/05/16 12:35) Acetamin-Hydrocod 325-5 Mg ([place] 5-325 (10/05/16 12:45) MDM Medical Decision Making Medical Screen Exam Complete: Yes Emergency Medical Condition: Yes Differential Diagnosis Trip and fall. Left foot sprain. Possible fracture. Narrative Course Patient is medically stable at time of exam. Patient is given Lortab 5/325 by mouth 1. X-ray of the left foot is obtained. X-ray shows no acute fracture dislocation per radiologist. Follow-up was recommended in 7-10 days pain persists. Patient is given a postop shoe for ambulation. Patient is given a prescription for ibuprofen 800 mg 3 times daily with food # 30. Patient follow-up as needed. Diagnosis Primary Impression: Sprain of left foot Qualified Code: S93.602A - Sprain of left foot, initial encounter Referrals: Primary Care Physician Patient Instructions: Foot Sprain (ED), General Instructions Additional Instructions: X-ray shows no acute fracture dislocation per radiologist. Follow-up was recommended in 7-10 days pain persists. Patient is given a postop shoe for ambulation. Patient is given a prescription for ibuprofen 800 mg 3 times daily with food # 30. Patient follow-up as needed. Med/Other Pt SpecificInfo: Prescription(s) given Scripts Ibuprofen 800 Mg [id number] Mg PO Q8H PRN (Pain/Inflammation) #30 TAB Prov:Gabriel Craft MD 10/05/16 Acetaminophen (Acetaminophen Extra Strength)500 Mg Cap1,000 Mg PO Q6H PRN (PAIN SCALE 4 TO 10) #60 CAP Ref 1 Prov:Gabriel Craft MD 10/05/16 Disposition: 01 DISCHARGE HOME Condition: Stable Fermin Dubose Oct 05, 2016 13:35
== END 2016-10-05 14:52 | disposition home or self-care (01) ==
LOC: NEPB 12:11
DX: S93.602A Unspecified sprain of left foot, initial encounter (principal); W18.09XA Striking against other object with subsequent fall, initial encounter; Y92.488 Other paved roadways as the place of occurrence of the external cause
CPT/HCPCS: 73630; 99283; L3260

== ENCOUNTER 2016-10-11 | Emergency (ER) | payer OTHER ==
[~2016-10-11] MED LIST changes: +EXTR500C PO; +IBUP800T23 PO
--- NOTE | 2016-10-11 00:42 | PD ---
HPI Chief Complaint: seizure Time Seen by Provider: 00:40 Travel History International Travel<30 days: No Contact w/Intl Traveler<30days: No History of Present Illness HPI Patient is a 31-year-old female with history of seizure disorder who presents the emergency department with seizure. Patient takes Lamictal. States that she is been compliant with this. She typically has a seizure approximately once per month. Her last seizure was one month ago. This evening she was on the back of a motorcycle when he felt an aura as though she was about to get a seizure and then did. No trauma. Patient states she feels back to baseline, slightly nauseous and body aches which is typical for her after seizure. PFSH Past Medical History Autoimmune Disease: No Anxiety: Yes Depression: Yes Cancer: Yes (cervical cancer - removed) Cardiovascular Problems: No Chemotherapy: No Cerebrovascular Accident: No Diabetes: No Diminished Hearing: No Endocrine: No Gastrointestinal Disorders: Yes (nausea all the time) Genitourinary: No Headaches: Yes Immune Disorder: No Implanted Vascular Access Dvce: No Musculoskeletal: Yes (back pain) Neurologic: Yes Psychiatric: Yes (Bipolar, ptsd, multiple personalties) Reproductive: No Respiratory: No Immunizations Current: Yes Migraines: Yes Radiation Therapy: No Seizures: Yes Thyroid Disease: No : 0 Para: 0 Miscarriage: 0 : 0 Past Surgical History Abdominal Surgery: Yes (gallbladder removed, tonsels and adenoids removed) Cardiac Surgery: No Cholecystectomy: Yes Ear Surgery: No Endocrine Surgery: No Eye Surgery: Yes (left eye surgeries X3 (lazy eye)) Genitourinary Surgery: No Gynecologic Surgery: Yes (Cervical bx X's 2, leep) Neurologic Surgery: No Oral Surgery: No Thoracic Surgery: No Other Surgery: Yes (cervical leep) Social History Alcohol Use: Yes (RARELY) Tobacco Use: No Substance Use: No Allergies-Medications (Allergen,Severity, Reaction): Coded Allergies: Reglan (Verified Allergy, Severe, shakes, 10/05/16) Toradol (Verified Allergy, Severe, cannot urinate, 10/05/16) Tramadol (Verified Allergy, Severe, cannot urinate, 10/05/16) Zofran (Verified Allergy, Severe, shakes, 10/05/16) Erythromycin (Verified Allergy, Intermediate, fever, 10/05/16) *MDRO Multi-Drug Resistant Organism (Verified Adverse Reaction, Unknown, ) MRSA PCR screen positive - 09/23/2015 Compazine (Verified Adverse Reaction, Unknown, AGITATION, 10/05/16) Reported Meds & Prescriptions Reported Meds & Active Scripts Active Ibuprofen 800 Mg Tab 800 Mg PO Q8H PRN Acetaminophen Extra Strength (Acetaminophen) 500 Mg Cap 1,000 Mg PO Q6H PRN Phenergan (Promethazine HCl) 25 Mg Tab 25 Mg PO Q6H PRN Reported Gabapentin 600 Mg Tab 600 Mg PO TID [place] (Hydrocodone-Acetaminophen) 10-325 Mg Tab 1 Tab PO Q6H PRN Zanaflex (Tizanidine HCl) 4 Mg Cap 4 Mg PO HS Ambien (Zolpidem Tartrate) 5 Mg Tab 5 Mg PO HS Latuda (Lurasidone) 20 Mg Tab 20 Mg PO HS Lamotrigine 100 Mg Tab 100 Mg PO BID Lexapro (Escitalopram Oxalate) 20 Mg Tab 20 Mg PO HS Review of Systems Except as stated in HPI: all other systems reviewed are Neg Physical Exam Narrative GENERAL: Well-appearing female in no acute distress SKIN: Warm and dry. HEAD: Atraumatic. Normocephalic. EYES: Pupils equal and round. No scleral icterus. No injection or drainage. ENT: No nasal bleeding or discharge. Mucous membranes pink and moist. NECK: Supple CARDIOVASCULAR: Regular rate and rhythm. RESPIRATORY: No accessory muscle use. GASTROINTESTINAL: Obese MUSCULOSKELETAL: As all extremity's normally No obvious deformities. No clubbing. No cyanosis. No edema. NEUROLOGICAL: Awake and alert. No obvious cranial nerve deficits. Motor grossly within normal limits. Normal speech. PSYCHIATRIC: Appropriate mood and affect; insight and judgment normal. [facility] Medical Decision Making Medical Screen Exam Complete: Yes Emergency Medical Condition: Yes Medical Record Reviewed: Yes Differential Diagnosis 31-year-old female with history of seizure disorder here with complaint of seizure. Differential includes seizure, breakthrough seizure, medication nonadherence, electrolyte abnormality, subtherapeutic antiepileptic. Narrative Course Patient placed on monitor. She refuses laboratory workup stating that it is always normally, and she was "due" for his seizure anyway. She sees a neurologist in [place] and is willing to follow up with them for outpatient management of her epilepsy. Patient is alert and oriented, GCS 15. Will be discharged home. Diagnosis Primary Impression: Seizure Referrals: Neurologist call for appointment Additional Instructions: No driving for 6 months after seizure. Follow-up with neurologist for further management of epilepsy. Med/Other Pt SpecificInfo: No Change to Meds Condition: Stable Bertha Garcia MD Oct 11, 2016 00:42
[2016-10-11 00:46] VITALS: BP 138/83; PULSE 56; RESP 18; TEMP 98.2; O2SAT 98
== END 2016-10-11 00:58 | disposition home or self-care (01) ==
LOC: NEDAMB
DX: G40.909 Epilepsy, unspecified, not intractable, without status epilepticus (principal)
CPT/HCPCS: 99283

== ENCOUNTER 2016-11-24 18:37 | Emergency (ER) | payer OTHER ==
[~2016-11-24] VITALS: Ht 167.6 cm; Wt 129.0 kg
[2016-11-24 18:38] VITALS: BP 140/91; PULSE 109; RESP 18; TEMP 97.8; O2SAT 98
--- NOTE | 2016-11-24 18:44 | PD ---
Physical Exam Time Seen by Provider: 18:42 Narrative 31 y/o female here with h/a, nausea, dizziness since yesterday, symptoms are typical of her migraine history. Vital signs reviewed Seen at triage desk. awaiting bed placement. Data Data Last Documented VS Vital Signs Date Time Temp Pulse Resp B/P Pulse Ox O2 Delivery O2 Flow Rate FiO2 11/24/16 18:38 97.8 109 18 140/91 98 MDM Medical Record Reviewed: Yes Supervised Visit with ANABEL: Bandar Rodriguez November 24, 2016 18:44
--- NOTE | 2016-11-24 19:09 | PD ---
HPI Chief Complaint: Headache Time Seen by Provider: 19:05 Travel History International Travel<30 days: No Contact w/Intl Traveler<30days: No Traveled to known affect area: No History of Present Illness HPI Patient is a 31 year old female presenting to emergency department for evaluation of a migraine. Patient states her migraine started yesterday, is consistent with her typical migraines. Patient states the pain is behind both of her eyes, she reports the pain is a 7 out of 10. She reports photophobia and nausea but no vomiting. Last night patient took ibuprofen and tizanidine at 8:00 with no relief of her symptoms, this morning she woke up and took hydrocodone, tizanidine and Phenergan. She continued to have symptoms so she took Excedrin Migraine. When that did not work she came to the emergency department. Patient was asked what she normally would do to abort her migraines and she stated "come to the emergency department". She does report the Imitrex worked for her however she states is not covered by her insurance. PFSH Past Medical History Autoimmune Disease: No Anxiety: Yes Depression: Yes Cancer: Yes (cervical cancer - removed) Cardiovascular Problems: No Chemotherapy: No Cerebrovascular Accident: No Diabetes: No Diminished Hearing: No Endocrine: No Gastrointestinal Disorders: Yes (nausea all the time) Genitourinary: No Headaches: Yes Immune Disorder: No Implanted Vascular Access Dvce: No Musculoskeletal: Yes (back pain) Neurologic: Yes Psychiatric: Yes (Bipolar, ptsd, multiple personalties) Reproductive: No Respiratory: No Immunizations Current: Yes Migraines: Yes Radiation Therapy: No Seizures: Yes Thyroid Disease: No ?: Not : 0 Para: 0 Miscarriage: 0 : 0 Past Surgical History Abdominal Surgery: Yes (gallbladder removed, tonsils and adenoids removed) Cardiac Surgery: No Cholecystectomy: Yes Ear Surgery: No Endocrine Surgery: No Eye Surgery: Yes (left eye surgeries X3 (lazy eye)) Genitourinary Surgery: No Gynecologic Surgery: Yes (Cervical bx X's 2, leep) Neurologic Surgery: No Oral Surgery: No Thoracic Surgery: No Other Surgery: Yes (cervical leep) Social History Alcohol Use: Yes (RARELY) Tobacco Use: No Substance Use: No Allergies-Medications (Allergen,Severity, Reaction): Coded Allergies: Reglan (Verified Allergy, Severe, shakes, 11/24/16) Toradol (Verified Allergy, Severe, cannot urinate, 11/24/16) Tramadol (Verified Allergy, Severe, cannot urinate, 11/24/16) Zofran (Verified Allergy, Severe, shakes, 11/24/16) Erythromycin (Verified Allergy, Intermediate, fever, 11/24/16) *MDRO Multi-Drug Resistant Organism (Verified Adverse Reaction, Unknown, ) MRSA PCR screen positive - 09/23/2015 Compazine (Verified Adverse Reaction, Unknown, AGITATION, 11/24/16) Reported Meds & Prescriptions Reported Meds & Active Scripts Active Ibuprofen 800 Mg Tab 800 Mg PO Q8H PRN Acetaminophen Extra Strength (Acetaminophen) 500 Mg Cap 1,000 Mg PO Q6H PRN Phenergan (Promethazine HCl) 25 Mg Tab 25 Mg PO Q6H PRN Reported Gabapentin 600 Mg Tab 600 Mg PO TID [place] (Hydrocodone-Acetaminophen) 10-325 Mg Tab 1 Tab PO Q6H PRN Zanaflex (Tizanidine HCl) 4 Mg Cap 4 Mg PO HS Ambien (Zolpidem Tartrate) 5 Mg Tab 5 Mg PO HS Latuda (Lurasidone) 20 Mg Tab 20 Mg PO HS Lamotrigine 100 Mg Tab 100 Mg PO BID Lexapro (Escitalopram Oxalate) 20 Mg Tab 20 Mg PO HS Review of Systems Except as stated in HPI: all other systems reviewed are Neg HENT: Positive: Headaches Gastrointestinal: Positive: Nausea Physical Exam Narrative GENERAL: Obese, well-developed, alert female. Resting comfortably in no acute distress. SKIN: Focused skin assessment warm/dry. HEAD: Atraumatic. Normocephalic. EYES: Pupils equal and round. No scleral icterus. No injection or drainage. ENT: No nasal bleeding or discharge. Mucous membranes pink and moist. NECK: Trachea midline. No JVD. CARDIOVASCULAR: Regular rate and rhythm. No murmur appreciated. RESPIRATORY: No accessory muscle use. Clear to auscultation. Breath sounds equal bilaterally. GASTROINTESTINAL: Abdomen soft, non-tender, nondistended. Hepatic and splenic margins not palpable. MUSCULOSKELETAL: No obvious deformities. No clubbing. No cyanosis. No edema. NEUROLOGICAL: Awake and alert. No obvious cranial nerve deficits. Motor grossly within normal limits. Normal speech. PSYCHIATRIC: Appropriate mood and affect; insight and judgment normal. Data Data Last Documented VS Vital Signs Date Time Temp Pulse Resp B/P Pulse Ox O2 Delivery O2 Flow Rate FiO2 11/24/16 18:54 18 Room Air 11/24/16 18:38 97.8 109 140/91 98 Orders Ed Urine Pregnancytest Poc (11/24/16 18:46) Sumatriptan Succinate (Imitrex) (11/24/16 19:15) MDM Medical Decision Making Medical Screen Exam Complete: Yes Emergency Medical Condition: Yes Medical Record Reviewed: Yes Interpretation(s) Vital Signs Date Time Temp Pulse Resp B/P Pulse Ox O2 Delivery O2 Flow Rate FiO2 11/24/16 18:54 18 Room Air 11/24/16 18:38 97.8 109 18 140/91 98 Differential Diagnosis Migraine versus tension headache versus cluster headache versus other Narrative Course Patient is a 31-year-old female presenting to the emergency room for evaluation of a migraine headache. Headache is typical of her previous headaches, patient is neurologically intact. Imitrex has worked for her in the past. She is unable to afford it due to insurance issues. Patient be given dose of Imitrex in the emergency department. Will reassess. Patient reassessed approximately 30 minutes after administration of Imitrex. Patient reports that her headache is completely resolved. Denies any nausea currently. Patient will be provided with a prescription for generic Imitrex. She is encouraged to shop around to different pharmacies to get the best [facility]. She is encouraged to follow-up with her primary doctor to discuss abortive therapy. Patient was encouraged to return to emergency department for any new or worsening symptoms. Patient verbalized understanding of discharge instructions. Patient is stable for discharge. Diagnosis Primary Impression: Migraine headache Qualified Code: G43.909 - Migraine without status migrainosus, not intractable , unspecified migraine type Referrals: [facility] Phys[facility] Patient Instructions: General Instructions, Migraine Headache (ED) Additional Instructions: Follow-up with your primary doctor or at the [facility] Avoid migraine triggers Take medications as needed and as directed Return to emergency department for any new or worsening symptoms Med/Other Pt SpecificInfo: Prescription(s) given Scripts Sumatriptan 50 Mg Tab50 Mg PO ONCE PRN (MIGRAINE HEADACHE) #9 TAB Ref 0 If a satisfactory response has not been obtained at 2 hours, a second dose may be administered Prov:Jillian Jay 11/24/16 Disposition: 01 DISCHARGE HOME Condition: Stable Jillian Jay November 24, 2016 19:08
[2016-11-24] MEDS ORDERED: SUMAtriptan SUCCINATE 50 MG TAB PO ONE (19:15)
[2016-11-24] MEDS ORDERED: SUMA50TA2 PO (20:12)
== END 2016-11-24 20:30 | disposition home or self-care (01) ==
LOC: NEPD 18:37
DX: G43.909 Migraine, unspecified, not intractable, without status migrainosus (principal); Z85.41 Personal history of malignant neoplasm of cervix uteri
CPT/HCPCS: 84703; 99284

== ENCOUNTER 2016-12-10 14:05 | Inpatient (IN) | payer OTHER ==
[~2016-12-10] VITALS: Ht 167.6 cm; Wt 130.7 kg
[~2016-12-10 14:05] MED LIST changes: +SUMA50TA2 PO
[2016-12-10 14:07] VITALS: BP 141/97; PULSE 125; RESP 18; TEMP 98.6; O2SAT 99
--- NOTE | 2016-12-10 14:14 | PD ---
Physical Exam Time Seen by Provider: 14:11 Narrative 31yo F c/o suicidal thoughts and has plan to overdose on muscle relaxers prescribed to her, Xanaflex. Has attempted in past with OD on muscle relaxers. Denies HI, hallucinations. Rod ETOH, illicit drug use. Patient seen in triage. Awaiting bed placement. VS reviewed. Data Data Last Documented VS Vital Signs Date Time Temp Pulse Resp B/P Pulse Ox O2 Delivery O2 Flow Rate FiO2 12/10/16 14:07 98.6 125 18 141/97 99 MDM Supervised Visit with ANABEL: Lima Silva December 10, 2016 14:14
[2016-12-10 14:59] LABS: AUTOMATED NEUTROPHIL # 11.1 TH/MM3 (1.8-7.7); BASOPHIL # 0.1 TH/MM3 (0-0.2); BASOPHIL % 0.7 % (0.0-2.0); EOSINOPHIL # 0.1 TH/MM3 (0-0.4); EOSINOPHIL % 0.6 % (0.0-4.0); HEMATOCRIT 38.7 % (35.0-46.0); HEMO FLAGS DIFF FINAL; LYMPH % 15.4 % (9.0-44.0); LYMPHOCYTE # 2.2 TH/MM3 (1.0-4.8); MEAN CELL VOLUME 87.9 FL (80.0-100.0); MEAN CORPUSCULAR HEMOGLOBIN 29.6 PG (27.0-34.0); MEAN CORPUSCULAR HGB CONC 33.7 % (32.0-36.0); MONO % 4.4 % (0.0-8.0); NEUT % 78.9 % (16.0-70.0); PLATELET COUNT 352 TH/MM3 (150-450); RED CELL DISTRIBUTION WIDTH 13.6 % (11.6-17.2); WHITE BLOOD COUNT 14.1 TH/MM3 (4.0-11.0)
[2016-12-10 15:14] LABS: AMPHETAMINE, URINE NEG (NEG); BARBITURATES, URINE NEG (NEG); COCAINE, URINE NEG (NEG)
[2016-12-10 15:21] LABS: BICARBONATE 24.4 MEQ/L (21.0-32.0); POTASSIUM 3.3 MEQ/L (3.5-5.1)
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
[2016-12-10] MEDS ORDERED: POTASSIUM CHLORIDE 20 MEQ CONTROLLED RELEASE TAB PO ONE (18:00)
[2016-12-10 19:36] VITALS: RESP 16; TEMP 98.8
[2016-12-11 00:09] VITALS: PULSE 84; RESP 16; O2SAT 97
[2016-12-11 08:22] VITALS: BP 115/68; PULSE 70; RESP 14; TEMP 98.3; O2SAT 98
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
[2016-12-11] MEDS ORDERED: MAGNESIUM HYDROXIDE SUSP 30 ML CUP PO PRN (09:15)
[2016-12-11] MEDS ORDERED: ALUMINUM/MAGNESIUM/SIMETH 30 ML CUP PO PRN (09:15)
[2016-12-11] MEDS: lamoTRIgine 100 MG TAB PO SCH ×2 (10:51→21:32)
[2016-12-11 11:14] VITALS: BP 135/86; PULSE 77; TEMP 97.1
[2016-12-11] MEDS: ACETAMINOPHEN 325 MG TAB PO PRN (12:08)
[2016-12-11] MEDS: GABAPENTIN 300 MG CAP PO SCH ×2 (12:10→17:27)
[2016-12-11] MEDS ORDERED: ACETAMINOPHEN 500 MG CPLT PO PRN (16:00)
[2016-12-11] MEDS ORDERED: PROMETHAZINE HCL 25 MG TAB PO PRN (16:00)
[2016-12-11] MEDS ORDERED: SUMAtriptan SUCCINATE 50 MG TAB PO PRN (16:00)
[2016-12-11] MEDS ORDERED: IBUPROFEN 800 MG TAB PO PRN (16:00)
[2016-12-11] MEDS: ACETAMINOPHEN/HYDROcodone 325 MG/10 MG TAB PO PRN (17:27)
[2016-12-11 18:08] VITALS: BP 133/78; PULSE 120; RESP 18; TEMP 97.4; O2SAT 95
[2016-12-11] MEDS: ESCITALOPRAM OXALATE 20 MG TAB PO SCH (21:31)
[2016-12-11] MEDS: ZOLPIDEM TARTRATE 5 MG TAB PO SCH (21:31)
[2016-12-12 05:02] VITALS: BP 117/60; PULSE 68; RESP 18; TEMP 97.3; O2SAT 98
[2016-12-12 09:03] LABS: ANION GAP 8 MEQ/L (5-15); BICARBONATE 25.6 MEQ/L (21.0-32.0); BLOOD UREA NITROGEN 11 MG/DL (7-18); CHLORIDE 106 MEQ/L (98-107); GLOMERULAR FILTRATION RATE 89 ML/MIN (>89); HDL CHOLESTEROL 55.2 MG/DL (40.0-60.0); LDL CHOLESTEROL 40 MG/DL (0-99); POTASSIUM 3.9 MEQ/L (3.5-5.1); SODIUM (NA) 140 MEQ/L (136-145)
[2016-12-12] MEDS: GABAPENTIN 300 MG CAP PO SCH ×3 (09:23→17:48)
[2016-12-12] MEDS: lamoTRIgine 100 MG TAB PO SCH ×2 (09:23→20:22)
[2016-12-12 13:40] LABS: HEMOGLOBIN A1b 1.5 %; HEMOGLOBIN Ao 86.6 %; HEMOGLOBIN LA1C 1.9 %; HEMOGLOBIN P3 3.4 %
[2016-12-12] MEDS: ACETAMINOPHEN/HYDROcodone 325 MG/10 MG TAB PO PRN ×2 (13:50→20:23)
[2016-12-12] MEDS: clonazePAM 0.5 MG TAB PO SCH ×2 (13:54→20:22)
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
[2016-12-12 16:35] VITALS: BP 132/75; PULSE 77; RESP 18; TEMP 97.5; O2SAT 97
[2016-12-12] MEDS ORDERED: PILL SPLITTER OTHER PRN (18:00)
[2016-12-12] MEDS: LURASIDONE 40 MG TAB PO SCH (20:22)
[2016-12-12] MEDS: ESCITALOPRAM OXALATE 20 MG TAB PO SCH (20:22)
[2016-12-12] MEDS ORDERED: LURASIDONE 40 MG TAB PO SCH (21:00)
[2016-12-12] MEDS: ZOLPIDEM TARTRATE 5 MG TAB PO SCH (21:32)
[2016-12-13 05:58] VITALS: BP 128/67; PULSE 68; RESP 18; TEMP 97.8; O2SAT 97
[2016-12-13] MEDS: clonazePAM 0.5 MG TAB PO SCH ×2 (09:00→20:46)
[2016-12-13] MEDS: lamoTRIgine 100 MG TAB PO SCH ×2 (09:00→20:46)
[2016-12-13] MEDS: GABAPENTIN 300 MG CAP PO SCH ×3 (09:17→17:18)
[2016-12-13] MEDS: ACETAMINOPHEN/HYDROcodone 325 MG/10 MG TAB PO PRN ×2 (11:31→20:48)
--- NOTE | 2016-12-13 13:26 | HHI.PYPN ---
Subjective Remarks Patient was seen and case discussed with nursing. Before interview, patient was seen laughing smiling and playing basketball with others. During our interview patient says she continues to be depressed with suicidal ideation with no intent or plan. She describes various stressors such as a recent kidney diagnosis for her mother and unemployment. Compliant with her medications and tolerating them well Objective Alert: Yes [place]: Person (ox4), Place, Date Mood: Depressed Affect: Other (note congruent, happy) Memory Intact: Comment (no impairmetn) Hallucinations: Other (Negative) Delusions: No Delusion Type: Other (none elicited) Suicidal: Plan (no plan), Ideation (fleeting thoughts) Homicidal: Ideation (denies) Insight/Judgment Poor Vitals/IOs Vital Signs Date Time Temp Pulse Resp B/P Pulse Ox O2 Delivery O2 Flow Rate FiO2 12/13/16 05:58 97.8 68 18 128/67 97 12/11/16 08:22 Room Air Assessment & Plan Problem List: (1) Bipolar 1 disorder, depressed, moderate ICD Code: F31.32 Assessment & Plan Consider borderline as a diagnosis Justification for Cont. Inpt. Patient will decompensate in a less restrictive setting James Corrales DO December 13, 2016 13:26
[2016-12-13] MEDS ORDERED: LORazepam 2 MG/ML VIAL ONE (19:33)
[2016-12-13] MEDS ORDERED: LORazepam 2 MG/ML VIAL IM ONE (20:00)
[2016-12-13] MEDS: ZOLPIDEM TARTRATE 5 MG TAB PO SCH (20:46)
[2016-12-13] MEDS: LURASIDONE 40 MG TAB PO SCH (20:46)
[2016-12-13] MEDS: ESCITALOPRAM OXALATE 20 MG TAB PO SCH (20:46)
[2016-12-13] MEDS: ACETAMINOPHEN 325 MG TAB PO PRN (20:47)
[2016-12-13 21:22] VITALS: BP 112/73; PULSE 78; RESP 18; TEMP 88.7; O2SAT 18
[2016-12-14 03:27] VITALS: BP 145/86; PULSE 90; TEMP 96; O2SAT 99
[2016-12-14 06:00] VITALS: BP 118/66; PULSE 62; RESP 18; TEMP 99.1; O2SAT 97
[2016-12-14] MEDS: clonazePAM 0.5 MG TAB PO SCH (08:54)
[2016-12-14] MEDS: GABAPENTIN 300 MG CAP PO SCH ×2 (08:54→13:14)
[2016-12-14] MEDS: lamoTRIgine 100 MG TAB PO SCH (08:54)
[2016-12-14] MEDS: ACETAMINOPHEN/HYDROcodone 325 MG/10 MG TAB PO PRN (13:18)
--- NOTE | 2016-12-14 14:47 | HHI.PYPN ---
Subjective Remarks Patient continues to be anxious and depressed. She is requesting we stopped the Latuda. This physician suggested and prescribed Abilify 1 mg daily at bedtime instead. Review of Systems Except as stated in HPI: all other systems reviewed are Neg Objective Alert: Yes [place]: Person (ox4), Place, Date Mood: Depressed Affect: Other (note congruent, happy) Memory Intact: Comment (no impairmetn) Hallucinations: Other (Negative) Delusions: No Delusion Type: Other (none elicited) Suicidal: Plan (no plan), Ideation (fleeting thoughts) Homicidal: Ideation (denies) Insight/Judgment Impaired Vitals/IOs Vital Signs Date Time Temp Pulse Resp B/P Pulse Ox O2 Delivery O2 Flow Rate FiO2 12/14/16 06:00 99.1 62 18 118/66 97 12/11/16 08:22 Room Air Assessment & Plan Problem List: (1) Bipolar 1 disorder, depressed, moderate ICD Code: F31.32 Assessment & Plan Estimated LOS: 2 days change Latuda for Abilify. Justification for Cont. Inpt. Changing medications at this time and will evaluate for tolerability. Luis Felipe Clayton MD December 14, 2016 14:47
[2016-12-14] MEDS ORDERED: LORazepam 2 MG/ML VIAL ONE (15:29)
[2016-12-14] MEDS ORDERED: LORazepam 2 MG/ML VIAL IM ONE (15:45)
[2016-12-14 15:50] VITALS: O2SAT 99
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
[2016-12-14] MEDS ORDERED: ARIPiprazole 2 MG TAB PO SCH (21:00)
[2016-12-15] MEDS ORDERED: CLON.5 PO (14:55)
[2016-12-15] MEDS ORDERED: LEVE500 PO (14:55)
== END 2016-12-14 15:55 | disposition still patient (30) | DRG 885 ==
LOC: NEPD 14:05 → NEDA 12-11 09:10 → H260 12-11 10:20
PROVIDERS: ADMIT Psychiatry & Neurology Psychiatry; ATTEND Psychiatry & Neurology Psychiatry
DX: F31.32 Bipolar disorder, current episode depressed, moderate (principal); R45.851 Suicidal ideations; G43.909 Migraine, unspecified, not intractable, without status migrainosus; E87.6 Hypokalemia; M51.16 Intervertebral disc disorders with radiculopathy, lumbar region; F41.1 Generalized anxiety disorder; F43.10 Post-traumatic stress disorder, unspecified; F44.5 Conversion disorder with seizures or convulsions
CPT/HCPCS: 80048; 80061; 80307; 83036; 84703; 85025; 99285; J2060

== ENCOUNTER 2016-12-14 16:30 | Inpatient (IN) | payer OTHER ==
[~2016-12-14] VITALS: Ht 170.2 cm; Wt 135.0 kg
[2016-12-14 16:30] VITALS: PULSE 97
[2016-12-14] MEDS ORDERED: LORazepam 2 MG/ML VIAL ONE (16:41)
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
[2016-12-14 18:00] VITALS: PULSE 98
[2016-12-14] MEDS ORDERED: levETIRAcetam 1000 MG INJ 100 ML IV ONE (18:15)
[2016-12-14] MEDS ORDERED: levETIRAcetam 1000 MG INJ 100 ML IV SCH (18:15)
[2016-12-14] MEDS: SODIUM CHLOR 0.9% 1000 ML INJ 1,000 ML IV SCH (18:42)
[2016-12-14 18:43] VITALS: BP 171/96; PULSE 90; RESP 17; TEMP 98.6; O2SAT 95
[2016-12-14] MEDS ORDERED: SODIUM CHLORIDE 0.9% FLUSH 10 ML FLUSH IV FLUSH PRN (18:45)
[2016-12-14] MEDS ORDERED: IBUPROFEN 600 MG TAB PO PRN (18:45)
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
[2016-12-14 20:00] VITALS: BP 143/84; PULSE 114; RESP 24; TEMP 98.4; O2SAT 95
[2016-12-14] MEDS: SODIUM CHLORIDE 0.9% FLUSH 10 ML FLUSH IV FLUSH SCH (20:00)
[2016-12-14] MEDS: LORazepam 2 MG/ML VIAL IV PRN (20:00)
--- NOTE | 2016-12-14 21:52 | RADRPT ---
EXAM DATE/TIME: 12/14/2016 21:07 [facility] COMPARISON: No previous studies available for comparison. INDICATIONS : Seizures. RADIATION DOSE: 50.46 CTDIvol (mGy) MEDICAL HISTORY : Seizures. Cervical ca SURGICAL HISTORY : Cholecystectomy. ENCOUNTER: Initial ACUITY: 1 day PAIN SCALE: 0/10 LOCATION: cranial TECHNIQUE: Multiple contiguous axial images were obtained of the head. Using automated exposure control and adj ustment of the mA and/or kV according to patient size, radiation dose was kept as low as reasonably a chievable to obtain optimal diagnostic quality images. FINDINGS: CEREBRUM: The ventricles are normal for age. No evidence of midline shift, mass lesion, hemorrhage or acute in farction. No extra-axial fluid collections are seen. POSTERIOR FOSSA: The cerebellum and brainstem are intact. The 4th ventricle is midline. The cerebellopontine angle i s unremarkable. EXTRACRANIAL: The visualized portion of the orbits is intact. SKULL: The calvaria is intact. No evidence of skull fracture. CONCLUSION: Normal examination for a patient of this age. No significant change has occurred. Tito Vo MD on December 14, 2016 at 21:50 Board Certified Radiologist. This report was verified electronically.
[2016-12-14 22:00] VITALS: PULSE 89
[2016-12-15] VITALS (13 sets, daily range): BP systolic 109–146; BP diastolic 65–97; PULSE 66–96; RESP 12–29; TEMP 97.9–98.7; O2SAT 94–99
[2016-12-15] MEDS: ACETAMINOPHEN 325 MG TAB PO PRN ×2 (02:21→10:29)
[2016-12-15] MEDS: SODIUM CHLOR 0.9% 1000 ML INJ 1,000 ML IV SCH ×2 (07:09→21:14)
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
[2016-12-15] MEDS ORDERED: SUMAtriptan SUCCINATE 50 MG TAB PO PRN (10:15)
[2016-12-15] MEDS: clonazePAM 0.5 MG TAB PO SCH ×2 (10:29→20:59)
[2016-12-15] MEDS: levETIRAcetam 500 MG TAB PO SCH ×2 (10:30→20:59)
[2016-12-15] MEDS: SODIUM CHLORIDE 0.9% FLUSH 10 ML FLUSH IV FLUSH SCH ×2 (10:30→20:59)
[2016-12-15] MEDS ORDERED: ACETAMINOPHEN/HYDROcodone 325 MG/10 MG TAB PO PRN (12:00)
--- NOTE | 2016-12-15 14:48 | MG ---
cc: LEONIDES FLOYD Lab No: [id number] Date: 12/15/2016 Age: 31 Sex: F A 31-year-old psych patient, seizure with gaze to the left, body shaking, possible pseudoseizures. Ativan, Keppra. DESCRIPTION Diffuse beta rhythms are seen consistent with benzodiazepine use. Photic stimulation is performed without significant posterior driving. No focal abnormalities are noted. No seizure activity is seen. Hyperventilation is performed with fair effort without change in the background. IMPRESSION A normal EEG. There is some medication effect with the benzodiazepines, otherwise no focal or diffuse abnormality, no seizure activity. MD ARTIE Barnett/GOLD /2:22 PM /2:42 PM
[2016-12-15] MEDS ORDERED: CLON.5 PO (14:55)
[2016-12-15] MEDS ORDERED: LEVE500 PO (14:55)
--- NOTE | 2016-12-15 14:56 | HHI.DCPOC ---
Discharge Care Plan Diagnosis: (1) Depression (2) Pseudoseizure (3) Migraine headache (4) Bipolar 1 disorder, depressed, moderate Goals to Promote Your Health * To prevent worsening of your condition and complications * To maintain your health at the optimal level Directions to Meet Your Goals Take your medications as prescribed Follow your dietary instruction Follow activity as directed Keep your appointments as scheduled Take your immunizations and boosters as scheduled If your symptoms worsen call your PCP, if no PCP go to Urgent Care Center or Emergency Room Smoking is Dangerous to Your Health. Avoid second hand smoke Call the 24-hour hour crisis hotline for domestic abuse at Mike Mcmanus MD December 15, 2016 14:56
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
[2016-12-15] MEDS: LORazepam 2 MG/ML VIAL IV PRN ×2 (15:16→21:00)
[2016-12-15 16:30] LABS: ALKALINE PHOSPHATASE 71 U/L (45-117); TOTAL BILIRUBIN ADULT 0.6 MG/DL (0.2-1.0)
[2016-12-15 16:49] LABS: ALT (GPT) 21 U/L (10-53); ANION GAP 7 MEQ/L (5-15); AST (GOT) 32 U/L (15-37); BICARBONATE 25.4 MEQ/L (21.0-32.0); BLOOD UREA NITROGEN 10 MG/DL (7-18); CHLORIDE 106 MEQ/L (98-107); GLOMERULAR FILTRATION RATE 81 ML/MIN (>89); SODIUM (NA) 138 MEQ/L (136-145)
[2016-12-15 16:52] LABS: POTASSIUM 3.9 MEQ/L (3.5-5.1)
[2016-12-15] MEDS ORDERED: LURASIDONE 40 MG TAB PO SCH (21:00)
[2016-12-15] MEDS ORDERED: ESCITALOPRAM OXALATE 20 MG TAB PO SCH (21:00)
== END 2016-12-15 21:44 | DRG 101 ==
LOC: N03A 16:30
PROVIDERS: ADMIT Hospitalist; ATTEND Hospitalist
DX: G40.909 Epilepsy, unspecified, not intractable, without status epilepticus (principal); R45.851 Suicidal ideations; F31.32 Bipolar disorder, current episode depressed, moderate; E66.01 Morbid (severe) obesity due to excess calories; G62.9 Polyneuropathy, unspecified; G89.29 Other chronic pain; H57.04 Mydriasis; R09.02 Hypoxemia; F41.9 Anxiety disorder, unspecified; Z59.0 Homelessness
CPT/HCPCS: 70450; 80053; 80177; 87641; 95819; J1953; J2060; J7030; L0172

== ENCOUNTER 2016-12-15 22:10 | Inpatient (IN) | payer OTHER ==
[~2016-12-15] VITALS: Ht 167.6 cm; Wt 129.9 kg
[~2016-12-15 22:10] MED LIST changes: +CLON.5 PO; +LEVE500 PO
[2016-12-15 22:37] VITALS: BP 143/84; PULSE 78; RESP 20; TEMP 97.9; O2SAT 95
[2016-12-16 06:21] VITALS: BP 139/76; PULSE 53; RESP 18; TEMP 98.1; O2SAT 95
[2016-12-16] MEDS ORDERED: ACETAMINOPHEN/HYDROcodone 325 MG/10 MG TAB PO PRN (08:15)
[2016-12-16] MEDS ORDERED: ACETAMINOPHEN 500 MG CPLT PO PRN (08:15)
[2016-12-16] MEDS ORDERED: PROMETHAZINE HCL 25 MG TAB PO PRN (08:15)
[2016-12-16] MEDS ORDERED: SUMAtriptan SUCCINATE 50 MG TAB PO PRN (08:15)
[2016-12-16] MEDS: levETIRAcetam 500 MG TAB PO SCH ×2 (09:00→20:57)
[2016-12-16] MEDS: clonazePAM 0.5 MG TAB PO SCH ×2 (09:57→20:57)
[2016-12-16] MEDS: GABAPENTIN 300 MG CAP PO SCH ×3 (09:57→18:35)
[2016-12-16] MEDS ORDERED: LORazepam 2 MG/ML VIAL IV PUSH STA (13:41)
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
[2016-12-16 18:06] VITALS: BP 128/82; PULSE 78; RESP 18; TEMP 98.2; O2SAT 100
[2016-12-16] MEDS: ZOLPIDEM TARTRATE 5 MG TAB PO SCH (20:56)
[2016-12-16] MEDS ORDERED: ESCITALOPRAM OXALATE 20 MG TAB PO SCH (21:00)
[2016-12-16] MEDS ORDERED: LURASIDONE 40 MG TAB PO SCH (21:00)
[2016-12-17 05:43] VITALS: BP 119/62; PULSE 66; RESP 16; TEMP 97.5; O2SAT 95
[2016-12-17] MEDS: levETIRAcetam 500 MG TAB PO SCH ×2 (08:26→21:41)
[2016-12-17] MEDS: clonazePAM 0.5 MG TAB PO SCH ×2 (08:26→21:41)
[2016-12-17] MEDS: GABAPENTIN 300 MG CAP PO SCH ×3 (08:26→17:28)
[2016-12-17] MEDS ORDERED: LORazepam 1 MG TAB PO PRN (14:00)
[2016-12-17] MEDS ORDERED: ALUMINUM/MAGNESIUM/SIMETH 30 ML CUP PO PRN ×2 (14:00)
[2016-12-17] MEDS ORDERED: LORazepam 2 MG/ML VIAL IM PRN ×2 (14:00)
[2016-12-17] MEDS ORDERED: ACETAMINOPHEN 325 MG TAB PO PRN ×2 (14:00→14:15)
[2016-12-17] MEDS ORDERED: MAGNESIUM HYDROXIDE SUSP 30 ML CUP PO PRN ×2 (14:00)
[2016-12-17] MEDS ORDERED: LORazepam 0.5 MG TAB PO PRN (14:00)
--- NOTE | 2016-12-17 14:09 | HHI.PYPN ---
Subjective Remarks Patient seen in her room with nurse daily. Patient calm cooperative is somewhat guarded sitting crosslegged in on her bed. She appears in no acute distress. When asked why she is here she said it depressed and "suicidal" however upon further questioning she states she moved any from [place] and number of years ago her about 3-4 years ago and now lives with roommates in a somewhat contentious relationship.. She states she has a boyfriend, and as a good relationship with him. She states she has a private psychiatrist in the community, has a private counselor also in the community. Psychiatrist is treating her bipolar disorder. She feels the Latuda that has been ordered is not helping her. Would rather be placed on Abilify. She also feels that the Lexapro she has been taking for year is not working well with lichen increase in that. During the conversation patient does not mention her seizure-like activities that seem to occur fairly regular basis especially when stressed. She has had significant evaluations and medical workup for those seizures. 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 at the present time I feel there is a marked manipulative component to the above that might be some type of a conversion reaction related to this. Patient does have appropriate mental health resources in the community including a private psychiatrist and counselor. I question if extended hospitalization would be counterproductive in this lady's treatment. We will ask the medical service if she can be medically cleared for discharge the next 24 hours. When I mention this to the patient she became somewhat irritable and I rate. For now will continue treatment with medication adjustments as mentioned above Review of Systems Except as stated in HPI: all other systems reviewed are Neg Objective Alert: Yes [employer]: Person, Place, Date Mood: Anxious, Calm, Other (somewhat manipulative) Affect: Other (good range and intensity) Memory Intact: Comment (there) Hallucinations: Other (denies) Delusions: No Delusion Type: Other (denies the somewhat vigilant) Suicidal: Ideation (patient made vague statements that I feel may be markedly manipulative) Homicidal: Ideation (denies) Insight/Judgment Poor Vitals/IOs Vital Signs Date Time Temp Pulse Resp B/P Pulse Ox O2 Delivery O2 Flow Rate FiO2 12/17/16 05:43 97.5 66 16 119/62 95 Intake and Output 12/16/16 12/16/16 12/17/16 08:00 16:00 00:00 Intake Total 0 ml 480 ml Balance 0 ml 480 ml Assessment & Plan Problem List: (1) Bipolar 1 disorder, depressed, moderate ICD Code: F31.32 Assessment & Plan Estimated LOS: days patient calm cooperative with me compliant medications with the medication adjustments as mentioned above however feel that may be a component of manipulation with this. Consider possible discharge tomorrow morning if medically cleared Justification for Cont. Inpt. For this time need continue monitoring for medication adjustments and medical clearance Discharge Planning To be determined Request HC Surrog/Guard Advoc?: No Juan Manuel Butler MD December 17, 2016 14:09
[2016-12-17] MEDS: ARIPiprazole 10 MG TAB PO SCH (14:13)
--- NOTE | 2016-12-17 17:37 | HHI.PR ---
Subjective Remarks Patient denies any further seizures. states feels tired denies headache. stable vital signs. Objective Vitals Vital Signs Date Time Temp Pulse Resp B/P Pulse Ox O2 Delivery O2 Flow Rate FiO2 12/17/16 05:43 97.5 66 16 119/62 95 12/16/16 18:06 98.2 78 18 128/82 100 I/O 12/16/16 12/16/16 12/16/16 12/17/16 12/17/16 12/17/16 06:59 14:59 22:59 06:59 14:59 22:59 Intake Total 0 ml 480 ml 240 ml Balance 0 ml 480 ml 240 ml Intake Oral 0 ml 480 ml 240 ml # Voids 2 1 Objective Remarks GENERAL: This is a obese well-nourished, well-developed patient, in no apparent distress. SKIN: No rashes, ecchymoses or lesions. Cool and dry. HEAD: Atraumatic. Normocephalic. No temporal or scalp tenderness. EYES: Pupils equal round and reactive. Extraocular motions intact. No scleral icterus. No injection or drainage. ENT: Nose without bleeding, purulent drainage or septal hematoma. Throat without erythema, tonsillar hypertrophy or exudate. Uvula midline. Airway patent. NECK: Trachea midline. No JVD or lymphadenopathy. Supple, nontender, no meningeal signs. CARDIOVASCULAR: Regular rate and rhythm without murmurs, gallops, or rubs. RESPIRATORY: Clear to auscultation. Breath sounds equal bilaterally. No wheezes , rales, or rhonchi. GASTROINTESTINAL: Abdomen soft, non-tender, nondistended. No hepato-splenomegaly , or palpable masses. No guarding. MUSCULOSKELETAL: Extremities without clubbing, cyanosis, or edema. No joint tenderness, effusion, or edema noted. No calf tenderness. NEUROLOGICAL: Awake and alert. Able to move all extremities. No focal neurologic findings. Normal speech. Medications and IVs Current Medications Medications (Trade) Dose Ordered Sig/Zachary Route Start Time Stop Time Status Last Admin (KlonoPIN) 0.5 mg Q12HR PO 12/16/16 09:00 12/17/16 08:26 (Neurontin) 600 mg TID PO 12/16/16 09:00 12/17/16 17:28 (Keppra) 500 mg Q12HR PO 12/16/16 09:00 12/17/16 08:26 (Phenergan) 25 mg Q6H PRN PO 12/16/16 08:15 (Zanaflex) 4 mg HS PO 12/16/16 21:00 12/16/16 21:16 (Ambien) 5 mg HS PO 12/16/16 21:00 12/16/16 20:56 (Lexapro) 30 mg HS PO 12/17/16 21:00 (Abilify) 10 mg DAILY PO 12/17/16 14:00 12/17/16 14:13 (Tylenol) 650 mg Q4H PRN PO 12/17/16 14:00 (Tylenol) 650 mg Q6HR PRN PO 12/17/16 14:15 Urinary Catheter: No Vascular Central Line Catheter: No A/P Assessment and Plan 31-year-old female with a past medical history of seizure disorder vs pseudoseizures, bipolar disorder, anxiety and migraines who was admitted to the psychiatric unit for suicidal thoughts with plan to overdose and transferred to the medical floor due to episodes of seizures found to be psychogenic nonepileptic seizures and patient readmitted to the psychiatric unit on the med/ psych floor. Hospitalist services were consulted for medical management. 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 Leukocytosis - Possibly reactive - Patient is afebrile - No indicator of infection - Repeat CBC to trend Hypokalemic - Resolved after repletion Chronic low back pain due to lumbar disc herniations and neuropathy - Patient undergoes monthly back injections at [facility] - she reports taking Gabapentin 600mg BID and [place] 10mg up to 4x/day for pain relief DVT prophylaxis - Encourage ambulation Discharge Planning The patient has had extensive neurological workup for seizures and is currently on anticonvulsive medications. She has been diagnosed with psychogenic seizures /pseudoseizures. She is to follow-up with a neurologist as an outpatient and continue to taking her current anticonvulsants. The patient is medically cleared to be discharged as long as her electrolytes are stable. Mike Mcmanus MD December 17, 2016 17:37
[2016-12-17] MEDS: ACETAMINOPHEN 325 MG TAB PO PRN (17:53)
[2016-12-17 18:00] VITALS: BP 143/85; PULSE 84; RESP 18; TEMP 97.4; O2SAT 99
[2016-12-17 20:01] LABS: HEMATOCRIT 39.9 % (35.0-46.0); MEAN CELL VOLUME 90.8 FL (80.0-100.0); MEAN CORPUSCULAR HEMOGLOBIN 29.8 PG (27.0-34.0); MEAN CORPUSCULAR HGB CONC 32.8 % (32.0-36.0); PLATELET COUNT 148 TH/MM3 (150-450); RED BLOOD COUNT 4.39 MIL/MM3 (4.00-5.30); RED CELL DISTRIBUTION WIDTH 13.8 % (11.6-17.2); REVIEW FLAG FINAL
[2016-12-17 20:07] LABS: POTASSIUM 4.1 MEQ/L (3.5-5.1)
[2016-12-17] MEDS ORDERED: ESCITALOPRAM OXALATE 20 MG TAB PO SCH (21:00)
[2016-12-17] MEDS: ZOLPIDEM TARTRATE 5 MG TAB PO SCH (21:42)
[2016-12-18] MEDS: ACETAMINOPHEN 325 MG TAB PO PRN (03:54)
[2016-12-18 06:20] VITALS: BP 121/69; PULSE 72; RESP 18; TEMP 98.2; O2SAT 95
[2016-12-18] MEDS: clonazePAM 0.5 MG TAB PO SCH (08:32)
[2016-12-18] MEDS: ARIPiprazole 10 MG TAB PO SCH (08:32)
[2016-12-18] MEDS: levETIRAcetam 500 MG TAB PO SCH (08:32)
[2016-12-18] MEDS: GABAPENTIN 300 MG CAP PO SCH ×2 (08:33→11:36)
[2016-12-18] MEDS ORDERED: NICOTINE 21 MG/24 HR PATCH T-DERMAL SCH (09:00)
[2016-12-18] MEDS ORDERED: AMBI5TAB PO (10:26)
[2016-12-18] MEDS ORDERED: levETIRAcetam PO (10:26)
[2016-12-18] MEDS ORDERED: CLON.5 PO (10:26)
[2016-12-18] MEDS ORDERED: ARIP1TAB12 PO (10:26)
[2016-12-18] MEDS ORDERED: TIZA4 PO (10:26)
[2016-12-18] MEDS ORDERED: NEUR300C PO (10:26)
[2016-12-18] MEDS ORDERED: ESCI20TA PO (10:26)
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
[2016-12-18 10:45] VITALS: RESP 18
[2016-12-18 11:19] LABS: ANION GAP 8 MEQ/L (5-15); BICARBONATE 24.9 MEQ/L (21.0-32.0); BLOOD UREA NITROGEN 12 MG/DL (7-18); CHLORIDE 104 MEQ/L (98-107); GLOMERULAR FILTRATION RATE 91 ML/MIN (>89); LDL CHOLESTEROL 40 MG/DL (0-99); SODIUM (NA) 137 MEQ/L (136-145)
[2016-12-18 11:21] LABS: POTASSIUM 4.3 MEQ/L (3.5-5.1)
[2016-12-18 12:01] LABS: HEMOGLOBIN A1a 1.3 %; HEMOGLOBIN A1b 1.4 %; HEMOGLOBIN Ao 86.6 %; HEMOGLOBIN LA1C 1.9 %; HEMOGLOBIN P3 3.3 %
== END 2016-12-18 12:15 | disposition home or self-care (01) | DRG 885 ==
LOC: H4EA 22:10 → H260 12-16 14:50
PROVIDERS: ADMIT Psychiatry & Neurology Psychiatry; ATTEND Psychiatry & Neurology Psychiatry
DX: F31.32 Bipolar disorder, current episode depressed, moderate (principal); F44.5 Conversion disorder with seizures or convulsions; E66.9 Obesity, unspecified; D72.829 Elevated white blood cell count, unspecified; F41.9 Anxiety disorder, unspecified; G43.909 Migraine, unspecified, not intractable, without status migrainosus; G89.29 Other chronic pain; M51.26 Other intervertebral disc displacement, lumbar region; Z86.14 Personal history of Methicillin resistant Staphylococcus aureus infection; Z91.5 Personal history of self-harm
CPT/HCPCS: 80048; 80061; 83036; 85027

== ENCOUNTER 2017-02-16 15:10 | Emergency (ER) | payer OTHER ==
[~2017-02-16] VITALS: Ht 167.6 cm; Wt 127.0 kg
[~2017-02-16 15:10] MED LIST changes: +ARIP1TAB12 PO; +DIPH25CA PO; +ESCI10TA PO; +ESCI20TA PO; -GABA600T PO; +GABA800T PO; +HYDR-3583 PO; -IBUP800T23 PO; +K-PHTAB PO; -LAMO100T PO; +NEUR300C PO; +PHEN-430 PO; +TIZA4 PO; -ZANA4CAP PO; +ZOLP5TAB3 PO; +levETIRAcetam PO
[2017-02-16 15:19] VITALS: BP 137/73; PULSE 81; RESP 17; TEMP 98.5; O2SAT 97
[2017-02-16] MEDS ORDERED: SODIUM CHLOR 0.9% 1000 ML INJ 1,000 ML IV ONE (15:24)
[2017-02-16] MEDS ORDERED: levETIRAcetam 1000 MG INJ 100 ML IV ONE (15:30)
[2017-02-16] MEDS ORDERED: SODIUM CHLORIDE 0.9% FLUSH 10 ML FLUSH IVF PRN (15:30)
[2017-02-16] MEDS ORDERED: LORazepam 2 MG/ML VIAL ONE ×4 (15:41→15:47)
[2017-02-16] MEDS ORDERED: ETOMIDATE 40 MG/20 ML VIAL ONE (15:47)
[2017-02-16] MEDS ORDERED: ROCURONIUM INJ 50 MG/5 ML VIAL ONE (15:47)
--- NOTE | 2017-02-16 15:59 | PD ---
HPI Chief Complaint: Seizure Time Seen by Provider: 15:33 Travel History International Travel<30 days: No Contact w/Intl Traveler<30days: No Traveled to known affect area: No History of Present Illness HPI Patient is a 31-year-old female presenting to the emergency department for evaluation after having 5 witnessed seizures in her doctor's office prior to arrival. He had 3 additional witnessed seizures by EMS. Patient was given 4 mg of Ativan in the field. Per EMS report her seizures lasted for 45 seconds to a minute and a half. Per EMS report patient recovered in between seizures. Patient reports that she was in [place] emergency Department yesterday due to abdominal pain and was diagnosed with pancreatitis. She states that she did not take her Keppra this morning. PFSH Past Medical History Bipolar Disorder: Yes Reproductive: Yes Migraines: Yes Seizures: Yes Tetanus Vaccination: < 5 Years Influenza Vaccination: Yes ?: Not Past Surgical History Cholecystectomy: Yes Social History Alcohol Use: Yes (OCC) Tobacco Use: No (VAPE) Substance Use: No Allergies-Medications (Allergen,Severity, Reaction): Coded Allergies: Erythromycin (Verified Allergy, Mild, Fever, 02/06/17) Reglan (Verified Allergy, Mild, Nausea/Vomiting, 02/06/17) Toradol (Verified Adverse Reaction, Intermediate, 02/06/17) Pt states "I must be catheterized when I take Toradol due to bladder spasms". Zofran (Verified Adverse Reaction, Mild, Dizziness, 02/06/17) Reported Meds & Prescriptions Reported Meds & Active Scripts Active K-Phos (Potassium Phosphate Monobasic) 500 Mg Tab 1,000 Mg PO Q12HR Keppra (Levetiracetam) 500 Mg Tab 500 Mg PO Q12H Reported Keppra (Levetiracetam) 500 Mg Tab 500 Mg PO DAILY Diphenhydramine (Diphenhydramine HCl) 25 Mg Cap 25 Mg PO Q6H PRN Gabapentin 800 Mg Tab 800 Mg PO TID Zolpidem (Zolpidem Tartrate) 5 Mg Tab 5 Mg PO HS PRN Escitalopram (Escitalopram Oxalate) 20 Mg Tab 20 Mg PO DAILY Phenazopyridine (Phenazopyridine HCl) 200 Mg Tab 200 Mg PO TID PRN Sumatriptan (Sumatriptan Succinate) 50 Mg Tab 50 Mg PO ONCE PRN If a satisfactory response has not been obtained at 2 hours, a second dose may be administered Escitalopram (Escitalopram Oxalate) 10 Mg Tab 10 Mg PO DAILY Hydrocodone-Acetaminophen 10-325 mg Tab 1 Tab PO Q6H PRN Review of Systems Except as stated in HPI: all other systems reviewed are Neg HENT: No: Headaches Cardiovascular: No: Chest Pain or Discomfort Respiratory: No: Shortness of Breath Gastrointestinal: No: Nausea, Abdominal Pain Musculoskeletal: No: Myalgias Neurologic: Positive: Incontinence, Seizures Physical Exam Narrative GENERAL: Obese, well-developed, alert female. SKIN: Warm and dry. HEAD: Atraumatic. Normocephalic. EYES: Pupils equal and round. No scleral icterus. No injection or drainage. Extraocular movements are intact ENT: No nasal bleeding or discharge. Mucous membranes pink and moist. NECK: Trachea midline. No JVD. CARDIOVASCULAR: Regular rate and rhythm. RESPIRATORY: No accessory muscle use. Clear to auscultation. Breath sounds equal bilaterally. GASTROINTESTINAL: Abdomen soft, non-tender, nondistended. Hepatic and splenic margins not palpable. MUSCULOSKELETAL: Extremities without clubbing, cyanosis, or edema. No obvious deformities. NEUROLOGICAL: Awake and alert. Patient is answering questions appropriately No obvious cranial nerve deficits. Motor grossly within normal limits. Five out of 5 muscle strength in the arms and legs. Normal speech. PSYCHIATRIC: Appropriate mood and affect; insight and judgment normal. Data Data Last Documented VS Vital Signs Date Time Temp Pulse Resp B/P Pulse Ox O2 Delivery O2 Flow Rate FiO2 02/16/17 17:13 84 18 126/63 100 Non-Rebreather 10 02/16/17 15:19 98.5 Orders Complete Blood Count With Diff (02/16/17 15:24) Blood Glucose (02/16/17 15:24) Ecg Monitoring (02/16/17 15:24) Iv Access Insert/Monitor (02/16/17 15:24) Oximetry (02/16/17 15:24) Comprehensive Metabolic Panel (02/16/17 15:24) Sodium Chlor 0.9% 1000 Ml Inj (Ns 1000 M (02/16/17 15:24) Sodium Chloride 0.9% Flush (Ns Flush) (02/16/17 15:30) Creatine Kinase (Cpk) (02/16/17 15:24) Lactic Acid (02/16/17 15:24) Levetiracetam 1000 Mg Inj (Keppra 1000 M (02/16/17 15:30) Urinalysis - C+S If Indicated (02/16/17 15:24) Cath For Specimen (02/16/17 15:24) Lorazepam Inj (Ativan Inj) (02/16/17 15:41) Lorazepam Inj (Ativan Inj) (02/16/17 15:41) Lorazepam Inj (Ativan Inj) (02/16/17 15:44) Etomidate Inj (Amidate Inj) (02/16/17 15:47) Rocuronium Inj (Zemuron Inj) (02/16/17 15:47) Lorazepam Inj (Ativan Inj) (02/16/17 15:47) Vascular Access Team Consult/P PRN (02/16/17 15:55) Vascular Poc Ultrasound (02/16/17 ) Neuro Checks . ORDERED (02/16/17 16:29) ^ Seizure Precautions (02/16/17 16:29) Labs Laboratory Tests Test 02/16/17 02/16/17 02/16/17 15:44 15:55 16:20 Lactic Acid Level 1.1 mmol/L White Blood Count 15.8 TH/MM3 Red Blood Count 4.45 MIL/MM3 Hemoglobin 13.1 GM/DL Hematocrit 40.1 % Mean Corpuscular Volume 90.1 FL Mean Corpuscular Hemoglobin 29.5 PG Mean Corpuscular Hemoglobin 32.8 % Concent Red Cell Distribution Width 13.9 % Platelet Count 411 TH/MM3 Mean Platelet Volume 8.6 FL Neutrophils (%) (Auto) 76.3 % Lymphocytes (%) (Auto) 16.3 % Monocytes (%) (Auto) 6.5 % Eosinophils (%) (Auto) 0.4 % Basophils (%) (Auto) 0.5 % Neutrophils # (Auto) 12.0 TH/MM3 Lymphocytes # (Auto) 2.6 TH/MM3 Monocytes # (Auto) 1.0 TH/MM3 Eosinophils # (Auto) 0.1 TH/MM3 Basophils # (Auto) 0.1 TH/MM3 CBC Comment DIFF FINAL Differential Comment Sodium Level 136 MEQ/L Potassium Level 4.0 MEQ/L Chloride Level 106 MEQ/L Carbon Dioxide Level 23.4 MEQ/L Anion Gap 7 MEQ/L Blood Urea Nitrogen 15 MG/DL Creatinine 0.75 MG/DL Estimat Glomerular Filtration 91 ML/MIN Rate Random Glucose 86 MG/DL Calcium Level 8.8 MG/DL Total Bilirubin 0.3 MG/DL Aspartate Amino Transf 10 U/L (AST/SGOT) Alanine Aminotransferase 29 U/L (ALT/SGPT) Alkaline Phosphatase 81 U/L Total Creatine Kinase 30 U/L Total Protein 8.2 GM/DL Albumin 3.7 GM/DL Urine Color YELLOW Urine Turbidity CLEAR Urine pH 6.0 Urine Specific [place] 1.044 Urine Protein TRACE mg/dL Urine Glucose (UA) NEG mg/dL Urine Ketones NEG mg/dL Urine Occult Blood NEG Urine Nitrite NEG Urine Bilirubin NEG Urine Urobilinogen LESS THAN 2.0 MG/DL Urine Leukocyte Esterase TRACE Urine RBC 1 /hpf Urine WBC 5 /hpf Urine Squamous Epithelial 2 /hpf Cells Urine Mucus FEW /lpf Microscopic Urinalysis Comment CATH-CULT NOT IND MDM Medical Decision Making Medical Screen Exam Complete: Yes Emergency Medical Condition: Yes Medical Record Reviewed: Yes Interpretation(s) Vital Signs Date Time Temp Pulse Resp B/P Pulse Ox O2 Delivery O2 Flow Rate FiO2 02/16/17 15:19 98.5 81 17 137/73 97 Differential Diagnosis Status epilepticus versus pseudoseizures versus electrolyte abnormality versus other Narrative Course Patient is a 31-year-old female that presented to the EMS emergency department for evaluation of witnessed seizures prior to arrival. On arrival patient had several more seizures requiring IV Ativan. Patient continued to have seizure- like activity and required several additional doses of Ativan, please see my attending provider's note. After seizure like activity ceased patient was aware of her surroundings, she was answering questions appropriately, she was aware of what was going on during the seizure, she was able to follow commands and was aware that being intubated was a possibility. She did not appear to be post-ictal. Patient was given bolus of IV Keppra. Medical records reviewed, patient had a negative EEG during her last admission less than 2 weeks ago. Her dose of Keppra was increased to 500 mg twice daily, again patient missed dose this morning. CBC with a mildly elevated white count Chemistry is unremarkable Lactic acid 1.1 Discussed with my attending physician, pt will be discharged home. Patient is neurologically intact. She will be discharged home. She was advised not to skip doses of her seizure medication. She was advised to follow- up with her primary doctor and neurologist. Diagnosis Primary Impression: Seizure-like activity Additional Impression: Psychogenic nonepileptic seizure Referrals: Neurologist Primary Care Physician Patient Instructions: General Instructions, Recurrent Seizures in Adults (DC) Additional Instructions: Follow-up with your neurologist Follow-up with your primary doctor Continue Keppra as previously prescribed, do not skip doses Return to emergency department for any new or worsening symptoms Med/Other Pt SpecificInfo: No Change to Meds Disposition: 01 DISCHARGE HOME Condition: Stable Jillian Jay [facility] Feb 16, 2017 15:59
[2017-02-16 16:01] VITALS: PULSE 84; RESP 20; O2SAT 100
--- NOTE | 2017-02-16 16:03 | PD ---
Physical Exam Narrative I, Dr. Galo, have reviewed the advance practice practitioner's documentation and am in agreement, met with the patient face to face, made the diagnosis, and the medical decision making was done by me. *My assessment and Findings: Pseudoseizure vs. status epilepticus vs. bipolar disorder 31yo F with bipolar disorder and psychogenic nonepileptic seizure here after witnessed seizure by EMS and Fire. Pt was given 4mg IV ativan by [facility] and fire prior to arrival. She had an episode of what appears like a generalized tonic clonic seizure and was given total of 6mg of ativan IV here in the ED. Pt did not have a post ictal state and can answer questions immediately afterwards. However, her oxygenation did desaturate and she was tachycardic during the episode. Pt seemed fully aware of what was happening though. Labs reviewed, lactic acid was normal so likely pseudoseizures. Pt to be discharge after observation in the ED. Data Data Last Documented VS Vital Signs Date Time Temp Pulse Resp B/P Pulse Ox O2 Delivery O2 Flow Rate FiO2 02/16/17 17:13 84 18 126/63 100 Non-Rebreather 10 02/16/17 15:19 98.5 Orders Complete Blood Count With Diff (02/16/17 15:24) Blood Glucose (02/16/17 15:24) Ecg Monitoring (02/16/17 15:24) Iv Access Insert/Monitor (02/16/17 15:24) Oximetry (02/16/17 15:24) Comprehensive Metabolic Panel (02/16/17 15:24) Sodium Chlor 0.9% 1000 Ml Inj (Ns 1000 M (02/16/17 15:24) Sodium Chloride 0.9% Flush (Ns Flush) (02/16/17 15:30) Creatine Kinase (Cpk) (02/16/17 15:24) Lactic Acid (02/16/17 15:24) Levetiracetam 1000 Mg Inj (Keppra 1000 M (02/16/17 15:30) Urinalysis - C+S If Indicated (02/16/17 15:24) Cath For Specimen (02/16/17 15:24) Lorazepam Inj (Ativan Inj) (02/16/17 15:41) Lorazepam Inj (Ativan Inj) (02/16/17 15:41) Lorazepam Inj (Ativan Inj) (02/16/17 15:44) Etomidate Inj (Amidate Inj) (02/16/17 15:47) Rocuronium Inj (Zemuron Inj) (02/16/17 15:47) Lorazepam Inj (Ativan Inj) (02/16/17 15:47) Vascular Access Team Consult/P PRN (02/16/17 15:55) Vascular Poc Ultrasound (02/16/17 ) Neuro Checks . ORDERED (02/16/17 16:29) ^ Seizure Precautions (02/16/17 16:29) Labs Laboratory Tests Test 02/16/17 02/16/17 02/16/17 15:44 15:55 16:20 Lactic Acid Level 1.1 mmol/L White Blood Count 15.8 TH/MM3 Red Blood Count 4.45 MIL/MM3 Hemoglobin 13.1 GM/DL Hematocrit 40.1 % Mean Corpuscular Volume 90.1 FL Mean Corpuscular Hemoglobin 29.5 PG Mean Corpuscular Hemoglobin 32.8 % Concent Red Cell Distribution Width 13.9 % Platelet Count 411 TH/MM3 Mean Platelet Volume 8.6 FL Neutrophils (%) (Auto) 76.3 % Lymphocytes (%) (Auto) 16.3 % Monocytes (%) (Auto) 6.5 % Eosinophils (%) (Auto) 0.4 % Basophils (%) (Auto) 0.5 % Neutrophils # (Auto) 12.0 TH/MM3 Lymphocytes # (Auto) 2.6 TH/MM3 Monocytes # (Auto) 1.0 TH/MM3 Eosinophils # (Auto) 0.1 TH/MM3 Basophils # (Auto) 0.1 TH/MM3 CBC Comment DIFF FINAL Differential Comment Sodium Level 136 MEQ/L Potassium Level 4.0 MEQ/L Chloride Level 106 MEQ/L Carbon Dioxide Level 23.4 MEQ/L Anion Gap 7 MEQ/L Blood Urea Nitrogen 15 MG/DL Creatinine 0.75 MG/DL Estimat Glomerular Filtration 91 ML/MIN Rate Random Glucose 86 MG/DL Calcium Level 8.8 MG/DL Total Bilirubin 0.3 MG/DL Aspartate Amino Transf 10 U/L (AST/SGOT) Alanine Aminotransferase 29 U/L (ALT/SGPT) Alkaline Phosphatase 81 U/L Total Creatine Kinase 30 U/L Total Protein 8.2 GM/DL Albumin 3.7 GM/DL Urine Color YELLOW Urine Turbidity CLEAR Urine pH 6.0 Urine Specific [place] 1.044 Urine Protein TRACE mg/dL Urine Glucose (UA) NEG mg/dL Urine Ketones NEG mg/dL Urine Occult Blood NEG Urine Nitrite NEG Urine Bilirubin NEG Urine Urobilinogen LESS THAN 2.0 MG/DL Urine Leukocyte Esterase TRACE Urine RBC 1 /hpf Urine WBC 5 /hpf Urine Squamous Epithelial 2 /hpf Cells Urine Mucus FEW /lpf Microscopic Urinalysis Comment CATH-CULT NOT IND MDM Supervised Visit with ANABEL: Yes Diagnosis Primary Impression: Psychogenic nonepileptic seizure Nayely Galo DO Feb 16, 2017 16:03
[2017-02-16 16:28] LABS: BASOPHIL # 0.1 TH/MM3 (0-0.2); BASOPHIL % 0.5 % (0.0-2.0); EOSINOPHIL # 0.1 TH/MM3 (0-0.4); EOSINOPHIL % 0.4 % (0.0-4.0); HEMATOCRIT 40.1 % (35.0-46.0); HEMO FLAGS DIFF FINAL; LYMPH % 16.3 % (9.0-44.0); LYMPHOCYTE # 2.6 TH/MM3 (1.0-4.8); MEAN CELL VOLUME 90.1 FL (80.0-100.0); MEAN CORPUSCULAR HEMOGLOBIN 29.5 PG (27.0-34.0); MEAN CORPUSCULAR HGB CONC 32.8 % (32.0-36.0); MONO % 6.5 % (0.0-8.0); NEUT % 76.3 % (16.0-70.0); PLATELET COUNT 411 TH/MM3 (150-450); RED BLOOD COUNT 4.45 MIL/MM3 (4.00-5.30); RED CELL DISTRIBUTION WIDTH 13.9 % (11.6-17.2); WHITE BLOOD COUNT 15.8 TH/MM3 (4.0-11.0)
[2017-02-16 16:46] LABS: ANION GAP 7 MEQ/L (5-15); BICARBONATE 23.4 MEQ/L (21.0-32.0); BLOOD UREA NITROGEN 15 MG/DL (7-18); CHLORIDE 106 MEQ/L (98-107); SODIUM (NA) 136 MEQ/L (136-145)
[2017-02-16 16:50] VITALS: RESP 20; O2SAT 100
[2017-02-16 17:02] LABS: ALT (GPT) 29 U/L (10-53); AST (GOT) 10 U/L (15-37); GLOMERULAR FILTRATION RATE 91 ML/MIN (>89)
[2017-02-16 17:04] LABS: ALKALINE PHOSPHATASE 81 U/L (45-117); TOTAL BILIRUBIN ADULT 0.3 MG/DL (0.2-1.0)
[2017-02-16 17:13] VITALS: BP 126/63; PULSE 84; RESP 18; O2SAT 100
[2017-02-16 17:19] LABS: BLOOD, URINE NEG (NEG); GLUCOSE,URINE NEG (NEG); KETONE, URINE NEG (NEG); MUCUS URINE FEW /lpf (OCC); NITRITE,URINE NEG (NEG); SQUAMOUS EPITHELIAL CELL URINE 2 /hpf (0-5); URINE COLOR YELLOW (YELLW/STRAW)
[2017-02-16 17:20] LABS: CREATINE KINASE 30 U/L (26-192)
[2017-02-16 17:22] LABS: COMMENT (UR) CATH-CULT NOT IND; CULTURE IF INDICATED CATH CULTURE NOT IND
--- NOTE | 2017-02-17 01:50 | PD ---
Data Data Last Documented VS Vital Signs Date Time Temp Pulse Resp B/P Pulse Ox O2 Delivery O2 Flow Rate FiO2 02/16/17 17:13 84 18 126/63 100 Non-Rebreather 10 02/16/17 15:19 98.5 Orders Complete Blood Count With Diff (02/16/17 15:24) Blood Glucose (02/16/17 15:24) Ecg Monitoring (02/16/17 15:24) Iv Access Insert/Monitor (02/16/17 15:24) Oximetry (02/16/17 15:24) Comprehensive Metabolic Panel (02/16/17 15:24) Sodium Chlor 0.9% 1000 Ml Inj (Ns 1000 M (02/16/17 15:24) Sodium Chloride 0.9% Flush (Ns Flush) (02/16/17 15:30) Creatine Kinase (Cpk) (02/16/17 15:24) Lactic Acid (02/16/17 15:24) Levetiracetam 1000 Mg Inj (Keppra 1000 M (02/16/17 15:30) Urinalysis - C+S If Indicated (02/16/17 15:24) Cath For Specimen (02/16/17 15:24) Lorazepam Inj (Ativan Inj) (02/16/17 15:41) Lorazepam Inj (Ativan Inj) (02/16/17 15:41) Lorazepam Inj (Ativan Inj) (02/16/17 15:44) Etomidate Inj (Amidate Inj) (02/16/17 15:47) Rocuronium Inj (Zemuron Inj) (02/16/17 15:47) Lorazepam Inj (Ativan Inj) (02/16/17 15:47) Vascular Access Team Consult/P PRN (02/16/17 15:55) Vascular Poc Ultrasound (02/16/17 ) Neuro Checks . ORDERED (02/16/17 16:29) ^ Seizure Precautions (02/16/17 16:29) Labs Laboratory Tests Test 02/16/17 02/16/17 02/16/17 15:44 15:55 16:20 Lactic Acid Level 1.1 mmol/L White Blood Count 15.8 TH/MM3 Red Blood Count 4.45 MIL/MM3 Hemoglobin 13.1 GM/DL Hematocrit 40.1 % Mean Corpuscular Volume 90.1 FL Mean Corpuscular Hemoglobin 29.5 PG Mean Corpuscular Hemoglobin 32.8 % Concent Red Cell Distribution Width 13.9 % Platelet Count 411 TH/MM3 Mean Platelet Volume 8.6 FL Neutrophils (%) (Auto) 76.3 % Lymphocytes (%) (Auto) 16.3 % Monocytes (%) (Auto) 6.5 % Eosinophils (%) (Auto) 0.4 % Basophils (%) (Auto) 0.5 % Neutrophils # (Auto) 12.0 TH/MM3 Lymphocytes # (Auto) 2.6 TH/MM3 Monocytes # (Auto) 1.0 TH/MM3 Eosinophils # (Auto) 0.1 TH/MM3 Basophils # (Auto) 0.1 TH/MM3 CBC Comment DIFF FINAL Differential Comment Sodium Level 136 MEQ/L Potassium Level 4.0 MEQ/L Chloride Level 106 MEQ/L Carbon Dioxide Level 23.4 MEQ/L Anion Gap 7 MEQ/L Blood Urea Nitrogen 15 MG/DL Creatinine 0.75 MG/DL Estimat Glomerular Filtration 91 ML/MIN Rate Random Glucose 86 MG/DL Calcium Level 8.8 MG/DL Total Bilirubin 0.3 MG/DL Aspartate Amino Transf 10 U/L (AST/SGOT) Alanine Aminotransferase 29 U/L (ALT/SGPT) Alkaline Phosphatase 81 U/L Total Creatine Kinase 30 U/L Total Protein 8.2 GM/DL Albumin 3.7 GM/DL Urine Color YELLOW Urine Turbidity CLEAR Urine pH 6.0 Urine Specific [place] 1.044 Urine Protein TRACE mg/dL Urine Glucose (UA) NEG mg/dL Urine Ketones NEG mg/dL Urine Occult Blood NEG Urine Nitrite NEG Urine Bilirubin NEG Urine Urobilinogen LESS THAN 2.0 MG/DL Urine Leukocyte Esterase TRACE Urine RBC 1 /hpf Urine WBC 5 /hpf Urine Squamous Epithelial 2 /hpf Cells Urine Mucus FEW /lpf Microscopic Urinalysis Comment CATH-CULT NOT IND MDM Supervised Visit with ANABEL: Yes Narrative Course I, Dr. Craft, have reviewed the advance practice practitioner's documentation and am in agreement, met with the patient face to face, made the diagnosis, and the medical decision making was done by me. *My assessment and Findings: Patient seen by me and while I did not directly examined the patient she is having epileptiform activity which she talks through. She has been intubated and admitted to the hospital before for status epilepticus with an essentially negative workup including EEG. The patient's workup in the emergency department is negative. After discussing Jillian TRAORE I made recommendations through her that if the patient would like to be treated further for her pseudoseizures she needs to consider being admitted for psychiatric evaluation. She states that she would rather go home and follow up outpatient. I think this is reasonable. She is not currently a threat to herself or others. She is not greatly disabled and is stable for discharge. She has had a sober ride coming to pick her up. Diagnosis Primary Impression: Seizure-like activity Additional Impression: Psychogenic nonepileptic seizure Referrals: Neurologist Primary Care Physician Patient Instructions: General Instructions, Recurrent Seizures in Adults (DC) Departure Forms: Tests/Procedures Additional Instruction: Follow-up with your neurologist Follow-up with your primary doctor Continue Keppra as previously prescribed, do not skip doses Return to emergency department for any new or worsening symptoms Disposition: 01 DISCHARGE HOME Condition: Stable Gabriel Craft MD Feb 17, 2017 01:50
== END 2017-02-16 20:36 | disposition home or self-care (01) ==
LOC: NEPD 15:10 → MERGE 15:10 → NEPD 20:36
DX: R56.9 Unspecified convulsions (principal); F31.9 Bipolar disorder, unspecified; K85.90 Acute pancreatitis without necrosis or infection, unspecified; Z88.1 Allergy status to other antibiotic agents; Z88.5 Allergy status to narcotic agent; Z79.899 Other long term (current) drug therapy
CPT/HCPCS: 80053; 81001; 82550; 83605; 85025; 96361; 96365; 99285; J1953; J2060; J7030; P9612